=== PATIENT | female | born 1965 | race Caucasian/White ===

== ENCOUNTER 2018-05-01 16:27 | Emergency (ER) | payer OTHER, SELFPAY ==
[2018-05-01 16:39] VITALS: BP 118/72; PULSE 91; RESP 22; TEMP 37.2; O2SAT 96
--- NOTE | 2018-05-01 19:12 | DI.RAD.S_ITS ---
PROCEDURE: XR CHEST 2V INDICATIONS: cough, sob TECHNIQUE: 2 views of the chest were acquired. COMPARISON: [facility], , CHEST 2 VIEW, 01/24/2014, 16:13. FINDINGS: Surgical changes and devices: None. Lungs and pleura: Mild appearance of increased pulmonary vascularity. Streaky retrocardiac opacity is present. Mediastinum: Mediastinal contours are normal. Heart size is normal. Bones and chest wall: No suspicious bony abnormalities. Soft tissues appear unremarkable. IMPRESSION: Streaky retrocardiac opacity which could represent focal edema or developing airspace disease such as pneumonia and/or atelectasis. Dictated by: Leigh Alvarado M.D. on 05/01/2018 at 18:32 Approved by: Leigh Alvarado M.D. on 05/01/2018 at 18:33
[2018-05-01] MEDS: predniSONE 20 MG TABLET 60 MG PO (19:39)
[2018-05-01] MEDS: ALBUTEROL/IPRATROPIUM 3 ML AMPUL INH (19:56)
[2018-05-01 19:57] VITALS: PULSE 75; RESP 20; O2SAT 95
--- NOTE | 2018-05-01 19:59 | ED.URI ---
HPI - URI/Sore Throat <CARLOS Rouse - Last Filed: 05/01/18 22:18> General Chief Complaint: Upper Respiratory Symptoms Stated Complaint: COUGH, FEVER Time Seen by Provider: 05/01/18 19:03 Source: patient and family Mode of arrival: ambulatory Limitations: no limitations History of Present Illness HPI Narrative: Patient is a 52-year-old female with history of asthma current everyday smoker who presents with a chief complaint of cough, fever and shortness of breath. She states symptoms started 2 days ago. She has a history of asthma, but has been on and off for medications sporadically due to insurance reasons. She has been using a nebulizer at home on occasion that belongs to her daughter and using her friend's asthma inhalers. She is not exactly sure what she is taking. She denies any chest pain. She states she has been wheezing. She complains of nausea and vomiting 2 days ago, but no longer. She denies any abdominal pain. She states that her entire family has had the flu recently. Related Data Home Medications Medication Instructions Recorded Confirmed ascorbic acid (vitamin C) #0 05/31/17 fexofenadine #0 05/31/17 Previous Rx's Medication Instructions Recorded albuterol sulfate [Proventil HFA] 1 - 2 puff INH PRN PRN #1 inh 05/31/17 beclomethasone dipropionate [Qvar] 1 puff INH BID #1 inh 05/31/17 albuterol sulfate 1 puff INHALATION Q4-6H PRN #18 05/01/18 gram doxycycline hyclate 100 mg PO BID #20 tab 05/01/18 oseltamivir [Tamiflu] 75 mg PO BID 5 Days #10 cap 05/01/18 prednisone 50 mg PO DAILY #5 tab 05/01/18 Allergies Allergy/AdvReac Type Severity Reaction Status Date / Time No Known Drug Allergies Allergy Verified 05/01/18 16:43 Review of Systems <CARLOS Rouse - Last Filed: 05/01/18 22:18> Review of Systems GENERAL: See HPI HEENT: Denies sinus pain, ear pain, sore throat, difficulty swallowing, dizziness. RESPIRATORY: see HPI CARDIOVASCULAR: Denies chest pain, palpitations, orthopnea, edema, GASTROINTESTINAL: see HPI : Denies dysuria, frequency, incontinence, hematuria, urinary retention. MUSCULOSKELETAL: denies weakness, joint pain, or bony pain SKIN: Denies rash, skin lesions, or other NEUROLOGIC: Denies weakness, headache, numbness, change in speech, confusion, seizures, incoordination. PSYCHIATRIC: No concerning psychosocial issues. 12 point review of systems is negative except for those stated above PFSH <Trini Mcwilliams [employer]- - Last Filed: 05/01/18 22:18> Surgical History History of repair of hiatal hernia Social History Smoking Status: Current every day smoker Social History Smoking Status: Current every day smoker Exam <Trini McwilliamsJENNYFERP- - Last Filed: 05/01/18 22:18> Narrative Exam Narrative: GENERAL: This is a well-nourished, well-developed patient, sitting on stretcher HEAD: Atraumatic. Normocephalic. No temporal or scalp tenderness. EYES: Pupils equal round and reactive. Extraocular motions intact. No scleral icterus. No injection or drainage. ENT: Nose without bleeding, purulent drainage or septal hematoma. Throat without erythema, tonsillar hypertrophy or exudate. Uvula midline. Airway patent. NECK: Trachea midline. No JVD or lymphadenopathy. Supple, nontender, no meningeal signs. CARDIOVASCULAR: Regular rate and rhythm without murmurs, gallops, or rubs. RESPIRATORY: Clear to auscultation. Breath sounds equal bilaterally. No wheezes, rales, or rhonchi. cough during exam. Gross expiratory wheezes all hendrix bilaterally. No stridor. No accessory muscle use. Able to speak full sentences. GASTROINTESTINAL: Abdomen soft, non-tender, nondistended. No hepato-splenomegaly, or palpable masses. No guarding. EXTREMITIES: No clubbing, cyanosis, or edema. No joint tenderness, effusion, or edema noted. BACK: Nontender without deformity or crepitance. No flank tenderness. NEURO: AOx3. SKIN: No rash or erythema. Initial Vital Signs Initial Vital Signs: Vital Signs Temperature 99.0 F 05/01/18 16:39 Pulse Rate 91 H 05/01/18 16:39 Respiratory Rate 22 05/01/18 16:39 Blood Pressure 118/72 05/01/18 16:39 Pulse Oximetry 96 05/01/18 16:39 <Néstor Alvarado DO - Last Filed: 05/01/18 22:28> Initial Vital Signs Initial Vital Signs: Vital Signs Temperature 99.0 F 05/01/18 16:39 Pulse Rate 91 H 05/01/18 16:39 Respiratory Rate 22 05/01/18 16:39 Blood Pressure 118/72 05/01/18 16:39 Pulse Oximetry 96 05/01/18 16:39 Course <CARLOS Rouse - Last Filed: 05/01/18 22:18> Course Narrative: I checked on the patient throughout her stay in the emergency department Orders Ordered: ED Orders 05/01/18 16:52 Influenza A and B by PCR Rapid Stat 05/01/18 19:12 XR chest 2V Stat RT Consult Eval and Treat Now Discontinued Medications Albuterol/Ipratropium (Duoneb) 3 ml INH NOW ONE Stop: 05/01/18 19:56 Last Admin: 05/01/18 19:56 Dose: 3 ml Prednisone (Deltasone) 60 mg PO NOW ONE Stop: 05/01/18 19:33 Last Admin: 05/01/18 19:39 Dose: 60 mg Vital Signs - 8 hr 05/01/18 16:39 05/01/18 19:57 Temperature 99.0 F Pulse Rate 91 H 75 Respiratory Rate 22 20 Blood Pressure 118/72 Pulse Oximetry 96 95 <Néstor Alvarado DO - Last Filed: 05/01/18 22:28> Orders Ordered: ED Orders 05/01/18 16:52 Influenza A and B by PCR Rapid Stat 05/01/18 19:12 XR chest 2V Stat RT Consult Eval and Treat Now Discontinued Medications Albuterol/Ipratropium (Duoneb) 3 ml INH NOW ONE Stop: 05/01/18 19:56 Last Admin: 05/01/18 19:56 Dose: 3 ml Prednisone (Deltasone) 60 mg PO NOW ONE Stop: 05/01/18 19:33 Last Admin: 05/01/18 19:39 Dose: 60 mg Vital Signs - 8 hr 05/01/18 16:39 05/01/18 19:57 Temperature 99.0 F Pulse Rate 91 H 75 Respiratory Rate 22 20 Blood Pressure 118/72 Pulse Oximetry 96 95 MDM - URI/Sore Throat <CARLOS Rouse - Last Filed: 05/01/18 22:18> Lab Data Lab Results 05/01/18 Range/Units 16:52 Influenza A & B (PCR) Positive, type a A (Negative) Imaging Data Chest x-ray: Radiologist's impression: [address] [address] XRay Report Signed Patient: Silva Maier AMR#: [id number] : 1965Acct:[id number] Age/Sex: 52 / FDate of Service: 05/01/18 Loc: ED Accession Number: [id number] Procedure: XR chest 2V Ordering Provider: Trini Mcwilliams PROCEDURE: XR CHEST 2V INDICATIONS: cough, sob TECHNIQUE: 2 views of the chest were acquired. COMPARISON: [facility] , CHEST 2 VIEW, 01/24/2014, 16:13. FINDINGS: Surgical changes and devices: None. Lungs and pleura: Mild appearance of increased pulmonary vascularity. Streaky retrocardiac opacity is present. Mediastinum: Mediastinal contours are normal. Heart size is normal. Bones and chest wall: No suspicious bony abnormalities. Soft tissues appear unremarkable. IMPRESSION: Streaky retrocardiac opacity which could represent focal edema or developing airspace disease such as pneumonia and/or atelectasis. Dictated by: Leigh Alvarado M.D. on 05/01/2018 at 18:32 Approved by: Leigh Alvaardo M.D. on 05/01/2018 at 18:33 MDM Narrative Medical decision making narrative: the patient is a 52-year-old female with history of asthma who presents with shortness of breath and chills. She tested positive for the flu. Her chest x-ray was concerning for pneumonia as well. Given that her symptoms started less than 48 hr ago, I offered her Tamiflu which she accepted. I placed her on doxycycline for her pneumonia. Given the extent of her wheezing, I gave her a burst of prednisone as well as a refill on her albuterol inhaler. I discussed at length return precautions the emergency department including severe shortness of breath or inability keep down fluids. I encouraged [id number] comfort measures as well as rest and pushing fluids. I encouraged her to follow up with primary care provider in the next few days for recheck. Patient was oxygenating well, nontoxic and hemodynamically stable throughout her stay in the emergency department. She had no questions or concerns upon discharge. <Néstor Alvarado, - Last Filed: 05/01/18 22:28> Lab Data Lab Results 05/01/18 Range/Units 16:52 Influenza A & B (PCR) Positive, type a A (Negative) Discharge Plan Departure Patient Disposition: Home Clinical Impression: Influenza Pneumonia Qualifiers: Pneumonia type: due to unspecified organism Laterality: left Lung location: lower lobe of lung Qualified Code(s): J18.1 - Lobar pneumonia, unspecified organism Discharge Date/Time: 05/01/18 20:18 Interventions: ED Discharge Assessment Last Done: 05/01/18 20:16 Instructions: DI for Pneumonia -- Adult, DI for Influenza -- Adult Activity Restrictions/Additional Instructions: your flu test is positive and your x-ray is concerning for pneumonia. I am starting on an antibiotic for the pneumonia and given you a prescription for Tamiflu given that you are in the window and have a history of asthma. I am starting on prednisone for a short course in order to help her wheezing and I have given her prescription of Ventolin. Please call Dr. Sevilla office and please be evaluated for ER follow-up. Please come back to the emergency department for severe shortness of breath, chest pain or acute concerns. I have also given you a work note as you have the flu. Prescriptions: New albuterol sulfate 90 mcg/actuation HFA aerosol inhaler 1 puff INHALATION Q4-6H PRN (Reason: shortness of breath or wheezing) Qty: 18 RF: 0 oseltamivir [Tamiflu] 75 mg capsule 75 mg PO BID 5 Days Qty: 10 RF: 0 prednisone 50 mg tablet 50 mg PO DAILY Qty: 5 RF: 0 doxycycline hyclate 100 mg tablet 100 mg PO BID Qty: 20 RF: 0 No Action ascorbic acid (vitamin C) 500 MG tablet Qty: 0 RF: 0 fexofenadine 180 MG tablet Qty: 0 RF: 0 beclomethasone dipropionate [Qvar] 80 MCG/PUFF aerosol 1 puff INH BID Qty: 1 RF: 1 albuterol sulfate [Proventil HFA] 90 MCG/PUFF HFA aerosol inhaler 1 - 2 puff INH PRN PRNQty: 1 RF: 1 Referrals: Leonard Aguilar MD [Primary Care Provider] - Stand Alone Forms: Work Release Note <Néstor Alvarado DO - Last Filed: 05/01/18 22:28> Cosign ED Attending Boazature Attestation: I was available for consultation during this patient's emergency department encounter
--- NOTE | 2018-05-01 20:06 | ED_ITS ---
HPI - URI/Sore Throat <CARLOS Rouse - Last Filed: 05/01/18 22:18> General Chief Complaint: Upper Respiratory Symptoms Stated Complaint: COUGH, FEVER Time Seen by Provider: 05/01/18 19:03 Source: patient and family Mode of arrival: ambulatory Limitations: no limitations History of Present Illness HPI Narrative: Patient is a 52-year-old female with history of asthma current everyday smoker who presents with a chief complaint of cough, fever and shortness of breath. She states symptoms started 2 days ago. She has a history of asthma, but has been on and off for medications sporadically due to insurance reasons. She has been using a nebulizer at home on occasion that belongs to her daughter and using her friend's asthma inhalers. She is not exactly sure what she is taking. She denies any chest pain. She states she has been wheezing. She complains of nausea and vomiting 2 days ago, but no longer. She denies any abdominal pain. She states that her entire family has had the flu recently. Related Data Home Medications Medication Instructions Recorded Confirmed ascorbic acid (vitamin C) #0 05/31/17 fexofenadine #0 05/31/17 Previous Rx's Medication Instructions Recorded albuterol sulfate [Proventil HFA] 1 - 2 puff INH PRN PRN #1 inh 05/31/17 beclomethasone dipropionate [Qvar] 1 puff INH BID #1 inh 05/31/17 albuterol sulfate 1 puff INHALATION Q4-6H PRN #18 05/01/18 gram doxycycline hyclate 100 mg PO BID #20 tab 05/01/18 oseltamivir [Tamiflu] 75 mg PO BID 5 Days #10 cap 05/01/18 prednisone 50 mg PO DAILY #5 tab 05/01/18 Allergies Allergy/AdvReac Type Severity Reaction Status Date / Time No Known Drug Allergies Allergy Verified 05/01/18 16:43 Review of Systems <CARLOS Rouse - Last Filed: 05/01/18 22:18> Review of Systems GENERAL: See HPI HEENT: Denies sinus pain, ear pain, sore throat, difficulty swallowing, dizziness. RESPIRATORY: see HPI CARDIOVASCULAR: Denies chest pain, palpitations, orthopnea, edema, GASTROINTESTINAL: see HPI : Denies dysuria, frequency, incontinence, hematuria, urinary retention. MUSCULOSKELETAL: denies weakness, joint pain, or bony pain SKIN: Denies rash, skin lesions, or other NEUROLOGIC: Denies weakness, headache, numbness, change in speech, confusion, seizures, incoordination. PSYCHIATRIC: No concerning psychosocial issues. 12 point review of systems is negative except for those stated above PFSH <Trini Mcwilliams [employer]- - Last Filed: 05/01/18 22:18> Surgical History History of repair of hiatal hernia Social History Smoking Status: Current every day smoker Social History Smoking Status: Current every day smoker Exam <Trini McwilliamsJENNYFERP- - Last Filed: 05/01/18 22:18> Narrative Exam Narrative: GENERAL: This is a well-nourished, well-developed patient, sitting on stretcher HEAD: Atraumatic. Normocephalic. No temporal or scalp tenderness. EYES: Pupils equal round and reactive. Extraocular motions intact. No scleral icterus. No injection or drainage. ENT: Nose without bleeding, purulent drainage or septal hematoma. Throat without erythema, tonsillar hypertrophy or exudate. Uvula midline. Airway patent. NECK: Trachea midline. No JVD or lymphadenopathy. Supple, nontender, no meningeal signs. CARDIOVASCULAR: Regular rate and rhythm without murmurs, gallops, or rubs. RESPIRATORY: Clear to auscultation. Breath sounds equal bilaterally. No wheezes, rales, or rhonchi. cough during exam. Gross expiratory wheezes all hendrix bilaterally. No stridor. No accessory muscle use. Able to speak full sentences. GASTROINTESTINAL: Abdomen soft, non-tender, nondistended. No hepato- splenomegaly, or palpable masses. No guarding. EXTREMITIES: No clubbing, cyanosis, or edema. No joint tenderness, effusion, or edema noted. BACK: Nontender without deformity or crepitance. No flank tenderness. NEURO: AOx3. SKIN: No rash or erythema. Initial Vital Signs Initial Vital Signs: Vital Signs Temperature 99.0 F 05/01/18 16:39 Pulse Rate 91 H 05/01/18 16:39 Respiratory Rate 22 05/01/18 16:39 Blood Pressure 118/72 05/01/18 16:39 Pulse Oximetry 96 05/01/18 16:39 <Néstor Alvarado DO - Last Filed: 05/01/18 22:28> Initial Vital Signs Initial Vital Signs: Vital Signs Temperature 99.0 F 05/01/18 16:39 Pulse Rate 91 H 05/01/18 16:39 Respiratory Rate 22 05/01/18 16:39 Blood Pressure 118/72 05/01/18 16:39 Pulse Oximetry 96 05/01/18 16:39 Course <CARLOS Rouse - Last Filed: 05/01/18 22:18> Course Narrative: I checked on the patient throughout her stay in the emergency department Orders Ordered: ED Orders 05/01/18 16:52 Influenza A and B by PCR Rapid Stat 05/01/18 19:12 XR chest 2V Stat RT Consult Eval and Treat Now Discontinued Medications Albuterol/Ipratropium (Duoneb) 3 ml INH NOW ONE Stop: 05/01/18 19:56 Last Admin: 05/01/18 19:56 Dose: 3 ml Prednisone (Deltasone) 60 mg PO NOW ONE Stop: 05/01/18 19:33 Last Admin: 05/01/18 19:39 Dose: 60 mg Vital Signs - 8 hr 05/01/18 16:39 05/01/18 19:57 Temperature 99.0 F Pulse Rate 91 H 75 Respiratory Rate 22 20 Blood Pressure 118/72 Pulse Oximetry 96 95 <Néstor Alvarado DO - Last Filed: 05/01/18 22:28> Orders Ordered: ED Orders 05/01/18 16:52 Influenza A and B by PCR Rapid Stat 05/01/18 19:12 XR chest 2V Stat RT Consult Eval and Treat Now Discontinued Medications Albuterol/Ipratropium (Duoneb) 3 ml INH NOW ONE Stop: 05/01/18 19:56 Last Admin: 05/01/18 19:56 Dose: 3 ml Prednisone (Deltasone) 60 mg PO NOW ONE Stop: 05/01/18 19:33 Last Admin: 05/01/18 19:39 Dose: 60 mg Vital Signs - 8 hr 05/01/18 16:39 05/01/18 19:57 Temperature 99.0 F Pulse Rate 91 H 75 Respiratory Rate 22 20 Blood Pressure 118/72 Pulse Oximetry 96 95 MDM - URI/Sore Throat <CARLOS Rouse - Last Filed: 05/01/18 22:18> Lab Data Lab Results 05/01/18 Range/Units 16:52 Influenza A & B (PCR) Positive, type a A (Negative) Imaging Data Chest x-ray: Radiologist's impression: [address] [address] XRay Report Signed Patient: Silva Maier AMR#: [id number] : 1965Acct:[id number] Age/Sex: 52 / FDate of Service: 05/01/18 Loc: ED Accession Number: [id number] Procedure: XR chest 2V Ordering Provider: Trini Mcwilliams PROCEDURE: XR CHEST 2V INDICATIONS: cough, sob TECHNIQUE: 2 views of the chest were acquired. COMPARISON: [facility] , CHEST 2 VIEW, 01/24/2014, 16:13. FINDINGS: Surgical changes and devices: None. Lungs and pleura: Mild appearance of increased pulmonary vascularity. Streaky retrocardiac opacity is present. Mediastinum: Mediastinal contours are normal. Heart size is normal. Bones and chest wall: No suspicious bony abnormalities. Soft tissues appear unremarkable. IMPRESSION: Streaky retrocardiac opacity which could represent focal edema or developing airspace disease such as pneumonia and/or atelectasis. Dictated by: Leigh Alvarado M.D. on 05/01/2018 at 18:32 Approved by: Leigh Alvarado M.D. on 05/01/2018 at 18:33 MDM Narrative Medical decision making narrative: the patient is a 52-year-old female with history of asthma who presents with shortness of breath and chills. She tested positive for the flu. Her chest x-ray was concerning for pneumonia as well. Given that her symptoms started less than 48 hr ago, I offered her Tamiflu which she accepted. I placed her on doxycycline for her pneumonia. Given the extent of her wheezing, I gave her a burst of prednisone as well as a refill on her albuterol inhaler. I discussed at length return precautions the emergency department including severe shortness of breath or inability keep down fluids. I encouraged [id number] comfort measures as well as rest and pushing fluids. I encouraged her to follow up with primary care provider in the next few days for recheck. Patient was oxygenating well, nontoxic and hemodynamically stable throughout her stay in the emergency department. She had no questions or concerns upon discharge. <Néstor Alvarado, - Last Filed: 05/01/18 22:28> Lab Data Lab Results 05/01/18 Range/Units 16:52 Influenza A & B (PCR) Positive, type a A (Negative) Discharge Plan Departure Patient Disposition: Home Clinical Impression: Influenza Pneumonia Qualifiers: Pneumonia type: due to unspecified organism Laterality: left Lung location: lower lobe of lung Qualified Code(s): J18.1 - Lobar pneumonia, unspecified organism Discharge Date/Time: 05/01/18 20:18 Interventions: ED Discharge Assessment Last Done: 05/01/18 20:16 Instructions: DI for Pneumonia -- Adult, DI for Influenza -- Adult Activity Restrictions/Additional Instructions: your flu test is positive and your x-ray is concerning for pneumonia. I am starting on an antibiotic for the pneumonia and given you a prescription for Tamiflu given that you are in the window and have a history of asthma. I am starting on prednisone for a short course in order to help her wheezing and I have given her prescription of Ventolin. Please call Dr. Sevilla office and please be evaluated for ER follow-up. Please come back to the emergency department for severe shortness of breath, chest pain or acute concerns. I have also given you a work note as you have the flu. Prescriptions: New albuterol sulfate 90 mcg/actuation HFA aerosol inhaler 1 puff INHALATION Q4-6H PRN (Reason: shortness of breath or wheezing) Qty: 18 RF: 0 oseltamivir [Tamiflu] 75 mg capsule 75 mg PO BID 5 Days Qty: 10 RF: 0 prednisone 50 mg tablet 50 mg PO DAILY Qty: 5 RF: 0 doxycycline hyclate 100 mg tablet 100 mg PO BID Qty: 20 RF: 0 No Action ascorbic acid (vitamin C) 500 MG tablet Qty: 0 RF: 0 fexofenadine 180 MG tablet Qty: 0 RF: 0 beclomethasone dipropionate [Qvar] 80 MCG/PUFF aerosol 1 puff INH BID Qty: 1 RF: 1 albuterol sulfate [Proventil HFA] 90 MCG/PUFF HFA aerosol inhaler 1 - 2 puff INH PRN PRNQty: 1 RF: 1 Referrals: Leonard Aguilar MD [Primary Care Provider] - Stand Alone Forms: Work Release Note <Néstor Alvarado DO - Last Filed: 05/01/18 22:28> Cosign ED Attending Boazature Attestation: I was available for consultation during this patient's emergency department encounter
== END 2018-05-01 20:18 | disposition home or self-care (01) ==
PROVIDERS: Emergency Medicine; Emergency Provider Nurse Practitioner Family; Family Provider Family Medicine; PCP Family Medicine
DX: J11.1 Influenza due to unidentified influenza virus with other respiratory manifestations (principal)
CPT/HCPCS: 71046; 87400; 94640; 99282; 99283

== ENCOUNTER → 2018-05-17 16:04 | Outpatient (CLI) | payer OTHER, SELFPAY ==
--- NOTE | 2018-05-17 16:06 | DI.RAD.S_ITS ---
PROCEDURE: XR CHEST 2V INDICATIONS: follow up pneumoia TECHNIQUE: 2 views of the chest were acquired. COMPARISON: [facility], CR, XR CHEST 2V, 05/01/2018, 19:14. FINDINGS: Surgical changes and devices: None. Lungs and pleura: Lungs are clear. No pleural effusions or pneumothorax. Mediastinum: Mediastinal contours are normal. Heart size is normal. Bones and chest wall: No suspicious bony abnormalities. Soft tissues appear unremarkable. IMPRESSION: No acute cardiopulmonary pathology. No focal infiltrate. Dictated by: Wang Dumont M.D. on 05/17/2018 at 16:51 Approved by: Wang Dumont M.D. on 05/17/2018 at 16:54
== END ==
LOC: RAD 16:05
PROVIDERS: Family Provider Family Medicine; PCP Family Medicine; Visit Provider Hospitalist
DX: J18.9 Pneumonia, unspecified organism (principal)
CPT/HCPCS: 71046

== ENCOUNTER → 2018-07-24 08:50 | Outpatient (CLI) | payer OTHER, SELFPAY ==
[2018-07-24 09:44] LABS: Add Manual Diff / Slide Review NO; Basophils Absolute Auto 0 /uL (0-100); Basophils Percent Auto 0.5 % (0-2); Eosinophils Absolute Auto 200 /uL (0-450); Eosinophils Percent Auto 2.6 % (2-4); Hematocrit 41.5 % (36-46); Hemoglobin 13.9 g/dL (12.0-16.0); Lymphocytes Absolute Auto 1500 /uL (1100-4500); Lymphocytes Percent Auto 23.3 % (25-40); Mean Corpuscular HGB Conc 33.5 % (30-36); Mean Corpuscular Hemoglobin 27.6 PG (26-34); Mean Corpuscular Volume 82.5 fL (80-100); Monocytes Absolute Auto 500 /uL (0-900); Monocytes Percent Auto 7.8 % (3-14); Neutrophils Absolute Auto 4200 /uL (1500-7000); Neutrophils Percent Auto 65.8 % (50-75); Platelet Count 299 X10^3/uL (150-400); Red Blood Cell Count 5.04 X10^6/uL (4.0-5.2); Red Cell Distribution Width 14.3 % (11.6-14.8); White Blood Cell Count 6.3 X10^3/uL (4.5-11.0)
[2018-07-24 10:12] LABS: Alanine Aminotransferase 17 IU/L (9-52); Albumin 3.9 g/dL (3.5-5.0); Albumin Globulin Ratio 1.3 (1.0-2.8); Alkaline Phosphatase 73 U/L (38-126); Aspartate Aminotransferase 16 IU/L (14-36); BUN Creatinine Ratio 16.7 (6-22); Bilirubin Total 0.3 mg/dL (0.2-1.3); Blood Urea Nitrogen 10 mg/dL (7-17); Carbon Dioxide 26 mmol/L (22-32); Chloride 105 mmol/L (98-107); Cholesterol 161 mg/dL (140-199); Estimated Glomerular Filt Rate > 60.0 mL/min (>60); Glucose 100 mg/dL (70-100); HDL Cholesterol 38 mg/dL (40-60); HEMOLYSIS < 15 (0-50); LDL Cholesterol Calculated 105 mg/dL (<100); Sodium 138 mmol/L (137-145); Total Protein 6.9 g/dL (6.3-8.2); Triglycerides 89 mg/dL (35-150)
[2018-07-24 10:43] LABS: TSH w/ Reflex to FT4 1.77 uIU/mL (0.47-4.68)
== END ==
PROVIDERS: PCP Family Medicine; Visit Provider Family Medicine
DX: Z00.00 Encounter for general adult medical examination without abnormal findings (principal); Z13.6 Encounter for screening for cardiovascular disorders
CPT/HCPCS: 36415; 80053; 80061; 84443; 85025

== ENCOUNTER → 2018-09-02 14:44 | Outpatient (CLI) | payer OTHER, SELFPAY ==
--- NOTE | 2018-09-02 14:45 | DI.MG.S_ITS ---
BILATERAL DIGITAL SCREENING MAMMOGRAM 3D/2D WITH CAD: 09/02/2018 CLINICAL: Routine screening. Comparison is made to exams dated: 03/17/2016 mammogram, 12/04/2014 mammogram, and 11/26/2013 mammogram - [facility]. There are scattered fibroglandular elements in both breasts. Current study was also evaluated with a Computer Aided Detection (CAD) system. There is a 5 mm round asymmetry with an obscured margin in the left breast anterior depth inferior region seen on the mediolateral oblique view only. No other significant masses, calcifications, or other findings are seen in either breast. IMPRESSION: INCOMPLETE: NEEDS ADDITIONAL IMAGING EVALUATION The 5 mm round asymmetry in the left breast is indeterminate. Additional views with possible ultrasound are recommended. This exam was interpreted at Station ID: [id number]. NOTE: For mammograms, a report in lay terms will be sent to the patient. Approximately 15% of breast malignancies will not be visualized mammographically. In the management of a palpable breast mass, a negative mammogram must not discourage biopsy of a clinically suspicious lesion. Electronically Signed By: Beth kaufman/:09/02/2018 18:07:15 letter sent: Additional Imaging Needed ACR BI-RADS Category 0: Incomplete [id number]
== END ==
PROVIDERS: PCP Family Medicine; Visit Provider Family Medicine
DX: Z12.31 Encounter for screening mammogram for malignant neoplasm of breast (principal); Z12.39 Encounter for other screening for malignant neoplasm of breast; R92.8 Other abnormal and inconclusive findings on diagnostic imaging of breast
CPT/HCPCS: 77063; 77067

== ENCOUNTER → 2018-09-18 08:17 | Outpatient (CLI) | payer OTHER, SELFPAY ==
--- NOTE | 2018-09-18 | DI.MG.S_ITS ---
UNILATERAL LEFT DIGITAL DIAGNOSTIC MAMMOGRAM 3D/2D WITH ADDITIONAL VIEWS: 09/18/2018 CLINICAL: Additional evaluation requested from prior study. Comparison is made to exams dated: 09/02/2018 mammogram, 03/17/2016 mammogram, and 12/04/2014 mammogram - [facility]. There are scattered fibroglandular elements in left breast. There is 0.5 cm round asymmetry in the left breast anterior depth 7-8:00 region seen on the lateral view only. This is less prominent with spot compression, but likely corresponds to the screening finding. There is also a 0.7 cm oval low density asymmetry in the left breast middle depth 9:00 region seen on the lateral view only. No other significant masses or calcifications are seen in the breast. IMPRESSION: INCOMPLETE: NEEDS ADDITIONAL IMAGING EVALUATION The 0.7 cm and 5.0 cm asymmetries persist on additional views and are indeterminate. An ultrasound is recommended. This was performed immediately following this exam. This exam was interpreted at Station ID: [id number]. NOTE: For mammograms, a report in lay terms will be sent to the patient. Approximately 15% of breast malignancies will not be visualized mammographically. In the management of a palpable breast mass, a negative mammogram must not discourage biopsy of a clinically suspicious lesion. Electronically Signed By: Beth kaufman/:09/18/2018 10:23:00 ACR BI-RADS Category 0: Incomplete [id number]
--- NOTE | 2018-09-18 08:19 | DI.US.S_ITS ---
LIMITED ULTRASOUND OF LEFT BREAST: 09/18/2018 CLINICAL: Additional evaluation requested from prior study. Comparison is made to exams dated: 09/18/2018 mammogram, 09/02/2018 mammogram, 03/17/2016 mammogram, 12/04/2014 mammogram, 11/26/2013 mammogram, and 11/24/2013 mammogram - [facility]. Color flow and real-time ultrasound of the left breast 7-9 o'clock region were performed. Garg scale images of the real-time examination were reviewed. There is 0.4 cm x 0.2 cm x 0.3 cm oval cyst in the left breast at 7 o'clock middle depth 5 cm from the nipple. This oval cyst is hypoechoic. This correlates with screening and diagnostic mammography findings. Color flow imaging demonstrates that there is no vascularity present. There also is 0.7 cm x 0.3 cm x 1 cm oval cyst in the left breast at 9 o'clock middle depth 3 cm from the nipple with the long axis parallel to the skin. This correlates with diagnostic mammography findings. Color flow imaging demonstrates that there is no vascularity present. IMPRESSION: PROBABLY BENIGN The 0.4 cm oval cyst in the left breast at 7 o'clock middle depth is probably benign. The 1 cm oval cyst in the left breast at 9 o'clock middle depth is consistent with a complicated cyst and is probably benign. A follow-up left mammogram and an ultrasound in 6 months is recommended to demonstrate stability. Findings and recommendations were conveyed to the patient at time of exam. This exam was interpreted at Station ID: [id number]. Electronically Signed By: Beth kaufman/:09/18/2018 11:50:02 letter sent: Followup Recommended Ultrasound BI-RADS: 3 Probably benign
== END ==
LOC: US 08:17
PROVIDERS: PCP Family Medicine; Visit Provider Family Medicine
DX: R92.8 Other abnormal and inconclusive findings on diagnostic imaging of breast (principal); N60.02 Solitary cyst of left breast
CPT/HCPCS: 76642; 77065; G0279

== ENCOUNTER → 2018-09-26 14:52 | Outpatient (CLI) | payer OTHER, SELFPAY ==
--- NOTE | 2018-09-26 14:53 | DI.RAD.S_ITS ---
PROCEDURE: XR FOOT LT MIN 3V INDICATIONS: heel pain TECHNIQUE: 3 views of the foot were acquired. COMPARISON: None. FINDINGS: Bones: No fractures or dislocations. No suspicious bony lesions. Os peroneum. Plantar and posterior calcaneal spurring. Diffuse midfoot spurring. Possible navicular Soft tissues: No tibiotalar joint effusion. Achilles tendon appears normal. IMPRESSION: Plantar and posterior calcaneal spurring. Dictated by: René Chaudhari M.D. on 09/26/2018 at 17:09 Approved by: René Chaudhari M.D. on 09/26/2018 at 17:13
[2018-09-26 15:47] LABS: B Type Natriuretic Peptide < 100 (<100)
[2018-09-26 17:26] LABS: Blood Urea Nitrogen 9 mg/dL (7-17); Calcium 9.7 mg/dL (8.4-10.2); Carbon Dioxide 29 mmol/L (22-32); Chloride 102 mmol/L (98-107); Estimated Glomerular Filt Rate > 60.0 mL/min (>60); Glucose 94 mg/dL (70-100); HEMOLYSIS < 15 (0-50); Potassium 4.4 mmol/L (3.4-5.1); Sodium 138 mmol/L (137-145)
== END ==
PROVIDERS: PCP Family Medicine; Visit Provider Hospitalist
DX: M79.672 Pain in left foot (principal); M77.32 Calcaneal spur, left foot
CPT/HCPCS: 36415; 73630; 80048; 83880

== ENCOUNTER 2019-01-23 14:30 | Outpatient (RCR) | payer OTHER, SELFPAY ==
--- NOTE | 2018-11-07 08:50 | PT.OIE ---
Current Diagnoses Achilles tendinitis, left leg (11/06/18) Past Surgical History (Last Reviewed 09/26/18 @ 14:58 by Jazzmine Carrion MD) H/O: hysterectomy (Resolved) H/O: hysterectomy (Resolved) History of repair of hiatal hernia Visit Care Team Role Provider Type Leonard Aguilar MD Primary Care Provider Physician Specialty: Family Practice Address: [address] [place] [address], [id number] Email: [email or web address] Nydia Farias DPM Attending Provider Physician Specialty: Podiatry Address: [address] [place] [address], [id number] Email: [email or web address] Physical Therapy Initial Evaluation PT-OP-A Visit Information Start: 11/07/18 08:04 Freq: Status: Active Protocol: Document 11/06/18 16:45 HH (Rec: 11/07/18 08:49 HH [email or web address]) Out-Patient Physical Therapy Visit Information Visit Information Visit Type Initial Evaluation Visit Start Time 16:45 Visit Stop Time 17:30 Total Visit Minutes 45 Visit Number 03/08 Number of DIRECTOR OF BUSINESS OPERATIONS Visits 0 PT-OP-B Current Condition Start: 11/07/18 08:04 Freq: Status: Active Protocol: Document 11/06/18 16:45 HH (Rec: 11/07/18 08:49 [email or web address]) Current Condition History of Current Condition Onset Date 11/07/18 Current Complaints L insertional achilles pain, R heel and foot pain, difficulty in walking History of Current Condition Pt is a 53yo female who presents to clinic with c/o L insertional achilles pain, R heel and foot pain, difficulty in walking since this Mar. Pt stated she started working at the [employer] 6 days a week (9-10 hrs shift) due to short of staff. She had to stay on her feet and constantly walking around at work which increased her stress on both feet. She then started to have L heel pain and R foot pain after a few weeks. Her pain is getting worse and started to have difficulty to take long walks. She went to see Dr. Farias 2 weeks ago and was prescribed with bilateral heel lift wedges. It does help her pain a lot but her pain comes back immediately whenever she walks barefoot at home. SShe is currently unable to sleep in supine due to pressure to her heels. She also has difficulty climbing stairs who has to lead with her R leg and used step to pattern. She stated she does take aleve for pain management. Pt also weighs 316 lbs and hopes to lose weight. Prior Treatments and Tests Pt has heel lift wedges Treatment Goals Patient/Caregiver Goals 1. To be able to amb without heel pain 2. To be able to climb stairs with step over pattern 3. To lose weight Current Functional Impairments (Reported) Functional Limitations- Mobility/Gait unable to amb without heel lifts Functional Limitations- Work/School unable to work for a full8-10 hrs shift due to pain Functional Limitations- Recreation/ unable to go for a long walk Hobbies due to pain ([place]) Personal Factors Other Personal Factors That May Effect SOB Therapy/Recovery Asthma PT-OP-C Subjective Start: 11/07/18 08:04 Freq: Status: Active Protocol: Document 11/06/18 16:45 HH (Rec: 11/07/18 08:49 [email or web address]) OP-PT Subjective Patient Comments Patient Comments I want to be pain free Patient Questionnaires Foot & Ankle Ability Measure- ADL and Sports FAAM-ADL Score 27 FAAM-ADL Impairment 60 to 79% Impaired (Score 16- 32) FAAM-Sport Score 0 FAAM-Sport Impairment 100% Impaired (Score 0) Lower Extremity Functional Scale LEFS Score 40 LEFS Impairment 40 to 59% Impaired (Score 32- 47) OP-PT Pain Assessment Location L heel pain Pain Location Details insertional achilles Intensity 8 Scale Used Numeric (1 - 10) Frequency Constant Pain Aggravating Factors Activity,Exercise,Walking, Stair Climbing Pain Alleviating Factors Inactivity PT-OP-D Balance Start: 11/07/18 08:04 Freq: Status: Active Protocol: Document 11/06/18 16:45 HH (Rec: 11/07/18 08:49 [email or web address]) Balance Tests Single Limb Standing Single Limb- Right 2s Single Limb- Left 7s PT-OP-F Manual Assessment Start: 11/07/18 08:04 Freq: Status: Active Protocol: Document 11/06/18 16:45 HH (Rec: 11/07/18 08:49 [email or web address]) Manual Assessments Soft Tissue Assessment Soft Tissue Mobility Assessment Significant tenderness to touch and pressure at L achilles tendon Tenderness to pressure at R posterior tibialis tendon and proximal plantar fascia PT-OP-G Mobility & Gait Start: 11/07/18 08:04 Freq: Status: Active Protocol: Document 11/06/18 16:45 HH (Rec: 11/07/18 08:49 [email or web address]) OP Gait Assessment Gait Deviations General Gait Pattern Decreased Stride Length, Decreased Feet Clearance Factors Limiting Gait Function Factors Limiting Gait Function Decreased Activity Tolerance, Decreased Strength,Limited Range of Motion,Pain,Poor Balance Comments Gait Comments Knock knee pattern noted with increased R knee valgus. Pt has early bilateral heels off and inadequate WB through lateral heel strike during initial contact and loading response PT-OP-J Posture/Palpation/Skin Start: 11/07/18 08:04 Freq: Status: Active Protocol: Document 11/06/18 16:45 HH (Rec: 11/07/18 08:49 [email or web address]) Posture Evaluation Position Standing Evaluation View Anterior Knee Posture (R) Genu Valgus Ankle/Foot Posture (L) Pronated,(R) Pronated Foot Arch (L) Low Arch,(R) No Arch PT-OP-K Range of Motion Start: 11/07/18 08:04 Freq: Status: Active Protocol: Document 11/06/18 16:45 HH (Rec: 11/07/18 08:49 [email or web address]) Ankle and Foot Goniometric Range of Motion Ankle and Foot Right Active Testing Position Supine Dorsiflexion with Knee Flexed 8 Dorsiflexion with Knee Extended 4 Plantarflexion 48 Left Active Testing Position Supine Dorsiflexion with Knee Flexed 7 Dorsiflexion with Knee Extended 3 Plantarflexion 45 PT-OP-M Strength Start: 11/07/18 08:04 Freq: Status: Active Protocol: Document 11/06/18 16:45 HH (Rec: 11/07/18 08:49 [email or web address]) Hip Strength Hip Manual Muscle Testing Right Flexion (L2) 4+ Good+ Extension (S1) 3+ Fair+ Abduction 3 Fair Adduction 4 Good Left Flexion (L2) 4+ Good+ Extension (S1) 4- Good- Abduction 3+ Fair+ Adduction 4 Good Ankle/Foot Strength Ankle and Foot Manual Muscle Testing Right Dorsiflexion (L4) 4+ Good+ Plantarflexion (S1) 4- Good- Inversion 4- Good- Eversion (S1) 4- Good- Left Dorsiflexion (L4) 4- Good- Plantarflexion (S1) 3+ Fair+ Inversion 4 Good Eversion (S1) 4 Good PT-OP-Q Treatments Start: 11/07/18 08:04 Freq: Status: Active Protocol: Document 11/06/18 16:45 HH (Rec: 11/07/18 08:49 HH [email or web address]) Self-Care/Home Management Treatment Education Other Education Education on postural awareness, gait abnormalities. relationship between body weigth and mechanical loads on B feet. relationship between hip strength/ stability on gait mechanics PT-OP-T Assessment and Plan Start: 11/07/18 08:04 Freq: Status: Active Protocol: Document 11/06/18 16:45 HH (Rec: 11/07/18 08:49 [email or web address]) Physical Therapy Assessment Rehab Potential Rehabilitation Potential Good Evaluation Complexity Number of Personal Factors/Comorbidities 1-2 Number of Body Systems Impaired 3 Clinical Presentation at Evaluation Stable Impairments Impairments Activity Tolerance,Balance, Functional Activities, Functional Mobility,Gait,Pain, Posture,ROM,Soft Tissue Mobility,Strength Other Concerns Barriers to Rehabilitation Pt is moderately obese Goals single leg balance Impairment Pt SLS: L= 7s, R= 2 s Short Term Goal (STG) pt will improve her SLS to 5 more seconds to improve her gait mechanics and stride length STG Duration 4 weeks Retirement Goal (LTG) pt will improve her SLS to 10 more seconds to improve her gait mechanics and stride length LTG Duration 8 weeks activity tolerance Impairment Pt is unable to climb stairs with step over/ prolonged walking Short Term Goal (STG) pt will be able to use step to pattern without UE support/ tolerate 10 mins of walking without heel lift STG Duration 4 weeks Object Oriented Developer Goal (LTG) pt will be able to use step over pattern without UE support/ tolerate 20 mins of walking without heel lift LTG Duration 8 weeks heel pain Impairment Pt has constant L heel pain 8/ 10 Short Term Goal (STG) Pt will have no more than 6/10 L heel pain during amb and at work STG Duration 4 weeks Object Oriented Developer Goal (LTG) Pt will have no more than 4/10 L heel pain during amb and at work LTG Duration 8 weeks Assessment Summary Assessment Pt is a 53yo moderately obeses female presents to clinic with L heel pain and R foot pain. Upon assessment, pt presents insertional achilles tendonopathy possibly due to her increased hours at work which increases mechanical stress on B feet due to her long standing hours with her bodyweight. During gait analysis, pt amb with a knock knee pattern with noticeable knee valgus R>L. She primarily WB through medial border of B feet with inadequate early heel rise. There's noticeable lack of dorsiflexion and inadequate B hip strength/ stability which impedes her gait efficiency. Pt will benefit from skilled therapy to strengthen B hip stabilizers, improve her single leg balance and plantar flexor flexibility and gait efficiency. Physical Therapy Plan Frequency and Duration Frequency of Treatment 2x/Week Duration of Treatment 8 weeks Plan of Care Start Date 11/06/18 Plan of Care End Date 01/06/19 Therapeutic Interventions Therapeutic Interventions Balance Training,Gait Training ,Home Exercise Program,Joint Mobilizations,Manual Therapy, Neuromuscular Re-education, Orthotic/Prosthetic Management ,Patient/Caregiver Education, Self-Care/Home Management,Soft Tissue Mobilization,Taping, Therapeutic Activities, Therapeutic Exercises Modalities Cold Pack/Ice Massage,Electric Stimulation,Hot Packs, Infrared Therapy,Ultrasound Next Visit Focus/Plan Next Note Type Treatment Note Next Visit Plan Provide hep with PF stretch, SLS, hip strengthening ex weight loss program cardio first with bike, stepper manual on L achilles , R plantar fascia B hip strengthening as sam single leg balance as sam
--- NOTE | 2018-11-08 16:43 | PT.OTN ---
Current Diagnoses Achilles tendinitis, left leg (11/08/18) Physical Therapy Treatment Note PT-OP-A Visit Information Start: 11/07/18 08:04 Freq: Status: Active Protocol: Document 11/08/18 15:20 HH (Rec: 11/08/18 16:42 HH [email or web address]) Out-Patient Physical Therapy Visit Information Visit Information Visit Type Treatment Note Visit Start Time 15:20 Visit Stop Time 16:02 Total Visit Minutes 42 Visit Number 04/08 Number of GEOSPATIAL INFORMATION TECHNOLOGIST Visits 0 PT-OP-B Current Condition Start: 11/07/18 08:04 Freq: Status: Active Protocol: Document 11/06/18 16:45 HH (Rec: 11/07/18 08:49 HH [email or web address]) Current Condition History of Current Condition Onset Date 11/07/18 Current Complaints L insertional achilles pain, R heel and foot pain, difficulty in walking History of Current Condition Pt is a 53yo female who presents to clinic with c/o L insertional achilles pain, R heel and foot pain, difficulty in walking since this Mar. Pt stated she started working at the [employer] 6 days a week (9-10 hrs shift) due to short of staff. She had to stay on her feet and constantly walking around at work which increased her stress on both feet. She then started to have L heel pain and R foot pain after a few weeks. Her pain is getting worse and started to have difficulty to take long walks. She went to see Dr. Farias 2 weeks ago and was prescirbed with bilateral heel lift wedges. It does help her pain a lot but her pain comes back immediately whenever she walks barefoot at home. SShe is currently unable to sleep in supine due to pressure to her heels. She also has difficulty climbing stairs who has to lead with her R leg and used step to pattern. She stated she does take aleve for pain management. Pt also weighs 316 lbs and hopes to lose weight. Prior Treatments and Tests Pt has heel lift wedges Treatment Goals Patient/Caregiver Goals 1. To be able to amb without heel pain 2. To be able to climb stairs with step over pattern 3. To lose weight Current Functional Impairments (Reported) Functional Limitations- Mobility/Gait unable to amb without heel lifts Functional Limitations- Work/School unable to work for a full8-10 hrs shift due to pain Functional Limitations- Recreation/ unable to go for a long walk Hobbies due to pain ([place]) Personal Factors Other Personal Factors That May Effect SOB Therapy/Recovery Asthma PT-OP-C Subjective Start: 11/07/18 08:04 Freq: Status: Active Protocol: Document 11/08/18 15:20 HH (Rec: 11/08/18 16:42 HH [email or web address]) OP-PT Subjective Patient Comments Patient Comments I worked 9 hrs today and my feet are very painful today. PT-OP-D Balance Start: 11/07/18 08:04 Freq: Status: Active Protocol: Document 11/06/18 16:45 HH (Rec: 11/07/18 08:49 HH [email or web address]) Balance Tests Single Limb Standing Single Limb- Right 2s Single Limb- Left 7s PT-OP-F Manual Assessment Start: 11/07/18 08:04 Freq: Status: Active Protocol: Document 11/06/18 16:45 HH (Rec: 11/07/18 08:49 HH [email or web address]) Manual Assessments Soft Tissue Assessment Soft Tissue Mobility Assessment Significant tenderness to touch and pressure at L achilles tendon Tenderness to pressure at R posterior tibialis tendon and proximal plantar fascia PT-OP-G Mobility & Gait Start: 11/07/18 08:04 Freq: Status: Active Protocol: Document 11/06/18 16:45 HH (Rec: 11/07/18 08:49 HH [email or web address]) OP Gait Assessment Gait Deviations General Gait Pattern Decreased Stride Length, Decreased Feet Clearance Factors Limiting Gait Function Factors Limiting Gait Function Decreased Activity Tolerance, Decreased Strength,Limited Range of Motion,Pain,Poor Balance Comments Gait Comments Knock knee pattern noted with increased R knee valgus. Pt has early bilateral heels off and inadequate WB through lateral heel strike during initial contact and loading response PT-OP-J Posture/Palpation/Skin Start: 11/07/18 08:04 Freq: Status: Active Protocol: Document 11/06/18 16:45 HH (Rec: 11/07/18 08:49 HH [email or web address]) Posture Evaluation Position Standing Evaluation View Anterior Knee Posture (R) Genu Valgus Ankle/Foot Posture (L) Pronated,(R) Pronated Foot Arch (L) Low Arch,(R) No Arch PT-OP-K Range of Motion Start: 11/07/18 08:04 Freq: Status: Active Protocol: Document 11/06/18 16:45 HH (Rec: 11/07/18 08:49 HH [email or web address]) Ankle and Foot Goniometric Range of Motion Ankle and Foot Right Active Testing Position Supine Dorsiflexion with Knee Flexed 8 Dorsiflexion with Knee Extended 4 Plantarflexion 48 Left Active Testing Position Supine Dorsiflexion with Knee Flexed 7 Dorsiflexion with Knee Extended 3 Plantarflexion 45 PT-OP-M Strength Start: 11/07/18 08:04 Freq: Status: Active Protocol: Document 11/06/18 16:45 HH (Rec: 11/07/18 08:49 HH [email or web address]) Hip Strength Hip Manual Muscle Testing Right Flexion (L2) 4+ Good+ Extension (S1) 3+ Fair+ Abduction 3 Fair Adduction 4 Good Left Flexion (L2) 4+ Good+ Extension (S1) 4- Good- Abduction 3+ Fair+ Adduction 4 Good Ankle/Foot Strength Ankle and Foot Manual Muscle Testing Right Dorsiflexion (L4) 4+ Good+ Plantarflexion (S1) 4- Good- Inversion 4- Good- Eversion (S1) 4- Good- Left Dorsiflexion (L4) 4- Good- Plantarflexion (S1) 3+ Fair+ Inversion 4 Good Eversion (S1) 4 Good PT-OP-Q Treatments Start: 11/07/18 08:04 Freq: Status: Active Protocol: Document 11/08/18 15:20 HH (Rec: 11/08/18 16:42 HH [email or web address]) Therapeutic Exercises Supine Exercises supine hip abduction Resistance level 4 band at hips Reps/Minutes 12 x 3 Comments cues on hip ER and abd Standing Exercises short foot Side bilateral Reps/Minutes 8 x2 Comments cues on creating arch calf raises on step Standing Exercise Name full range of DF and PF Side bilateral Equipment Used stair Reps/Minutes 8 x 3 Manual Therapy Treatment Soft Tissue Mobilization R proximal plantar fascia Mobilization Type Instrument Assisted Intensity/Depth Moderate Body Position Hooklying L achilles Body Location distal achilles Mobilization Type Instrument Assisted Intensity/Depth Deep Body Position Hooklying Taping kt tape Body Location I on L achilles, I on R plantar fascia Type of Tape Kinesio Tape PT-OP-T Assessment and Plan Start: 11/07/18 08:04 Freq: Status: Active Protocol: Document 11/08/18 15:20 HH (Rec: 11/08/18 16:42 [email or web address]) Physical Therapy Assessment Goals single leg balance Impairment Pt SLS: L= 7s, R= 2 s Short Term Goal (STG) pt will improve her SLS to 5 more seconds to improve her gait mechanics and stride length STG Duration 4 weeks Prison Goal (LTG) pt will improve her SLS to 10 more seconds to improve her gait mechanics and stride length LTG Duration 8 weeks activity tolerance Impairment Pt is unable to climb stairs with step over/ prolonged walking Short Term Goal (STG) pt will be able to use step to pattern without UE support/ tolerate 10 mins of walking without heel lift STG Duration 4 weeks Prison Goal (LTG) pt will be able to use step over pattern without UE support/ tolerate 20 mins of walking without heel lift LTG Duration 8 weeks heel pain Impairment Pt has constant L heel pain 8/ 10 Short Term Goal (STG) Pt will have no more than 6/10 L heel pain during amb and at work STG Duration 4 weeks Java Technical Manager Goal (LTG) Pt will have no more than 4/10 L heel pain during amb and at work LTG Duration 8 weeks Assessment Summary Assessment Pt sam tx well and reports reduced pain after manual therapy and KT tape. New HEP include calf raises, supine hip abd and short foot ex. educated to pt to not use heel lift when shes not working. Physical Therapy Plan Next Visit Focus/Plan Next Note Type Treatment Note Next Visit Plan review hep with PF stretch, SLS, hip strengthening ex weight loss program cardio first with bike, stepper manual on L achilles , R plantar fascia B hip strengthening as sam single leg balance as sam
--- NOTE | 2018-11-13 16:43 | PT.OTN ---
Current Diagnoses Achilles tendinitis, left leg (11/13/18) Physical Therapy Treatment Note PT-OP-A Visit Information Start: 11/07/18 08:04 Freq: Status: Active Protocol: Document 11/13/18 15:20 HH (Rec: 11/13/18 16:43 HH [email or web address]) Out-Patient Physical Therapy Visit Information Visit Information Visit Type Treatment Note Visit Start Time 15:20 Visit Stop Time 16:00 Total Visit Minutes 40 Visit Number 05/06 Number of AUTOMATIC CLIPPER Visits 0 PT-OP-B Current Condition Start: 11/07/18 08:04 Freq: Status: Active Protocol: Document 11/06/18 16:45 HH (Rec: 11/07/18 08:49 HH [email or web address]) Current Condition History of Current Condition Onset Date 11/07/18 Current Complaints L insertional achilles pain, R heel and foot pain, difficulty in walking History of Current Condition Pt is a 53yo female who presents to clinic with c/o L insertional achilles pain, R heel and foot pain, difficulty in walking since this Mar. Pt stated she started working at the [employer] 6 days a week (9-10 hrs shift) due to short of staff. She had to stay on her feet and constantly walking around at work which increased her stress on both feet. She then started to have L heel pain and R foot pain after a few weeks. Her pain is getting worse and started to have difficulty to take long walks. She went to see Dr. Farias 2 weeks ago and was prescirbed with bilateral heel lift wedges. It does help her pain a lot but her pain comes back immediately whenever she walks barefoot at home. SShe is currently unable to sleep in supine due to pressure to her heels. She also has difficulty climbing stairs who has to lead with her R leg and used step to pattern. She stated she does take aleve for pain management. Pt also weighs 316 lbs and hopes to lose weight. Prior Treatments and Tests Pt has heel lift wedges Treatment Goals Patient/Caregiver Goals 1. To be able to amb without heel pain 2. To be able to climb stairs with step over pattern 3. To lose weight Current Functional Impairments (Reported) Functional Limitations- Mobility/Gait unable to amb without heel lifts Functional Limitations- Work/School unable to work for a full8-10 hrs shift due to pain Functional Limitations- Recreation/ unable to go for a long walk Hobbies due to pain ([place]) Personal Factors Other Personal Factors That May Effect SOB Therapy/Recovery Asthma PT-OP-C Subjective Start: 11/07/18 08:04 Freq: Status: Active Protocol: Document 11/13/18 15:20 HH (Rec: 11/13/18 16:43 HH [email or web address]) OP-PT Subjective Patient Comments Patient Comments 'I've been doing my exercises and not using my heel lift did increase my heel pain. PT-OP-D Balance Start: 11/07/18 08:04 Freq: Status: Active Protocol: Document 11/06/18 16:45 HH (Rec: 11/07/18 08:49 HH [email or web address]) Balance Tests Single Limb Standing Single Limb- Right 2s Single Limb- Left 7s PT-OP-F Manual Assessment Start: 11/07/18 08:04 Freq: Status: Active Protocol: Document 11/06/18 16:45 HH (Rec: 11/07/18 08:49 HH [email or web address]) Manual Assessments Soft Tissue Assessment Soft Tissue Mobility Assessment Significant tenderness to touch and pressure at L achilles tendon Tenderness to pressure at R posterior tibialis tendon and proximal plantar fascia PT-OP-G Mobility & Gait Start: 11/07/18 08:04 Freq: Status: Active Protocol: Document 11/06/18 16:45 HH (Rec: 11/07/18 08:49 HH [email or web address]) OP Gait Assessment Gait Deviations General Gait Pattern Decreased Stride Length, Decreased Feet Clearance Factors Limiting Gait Function Factors Limiting Gait Function Decreased Activity Tolerance, Decreased Strength,Limited Range of Motion,Pain,Poor Balance Comments Gait Comments Knock knee pattern noted with increased R knee valgus. Pt has early bilateral heels off and inadequate WB through lateral heel strike during initial contact and loading response PT-OP-J Posture/Palpation/Skin Start: 11/07/18 08:04 Freq: Status: Active Protocol: Document 11/06/18 16:45 HH (Rec: 11/07/18 08:49 HH [email or web address]) Posture Evaluation Position Standing Evaluation View Anterior Knee Posture (R) Genu Valgus Ankle/Foot Posture (L) Pronated,(R) Pronated Foot Arch (L) Low Arch,(R) No Arch PT-OP-K Range of Motion Start: 11/07/18 08:04 Freq: Status: Active Protocol: Document 11/06/18 16:45 HH (Rec: 11/07/18 08:49 [email or web address]) Ankle and Foot Goniometric Range of Motion Ankle and Foot Right Active Testing Position Supine Dorsiflexion with Knee Flexed 8 Dorsiflexion with Knee Extended 4 Plantarflexion 48 Left Active Testing Position Supine Dorsiflexion with Knee Flexed 7 Dorsiflexion with Knee Extended 3 Plantarflexion 45 PT-OP-M Strength Start: 11/07/18 08:04 Freq: Status: Active Protocol: Document 11/06/18 16:45 HH (Rec: 11/07/18 08:49 HH [email or web address]) Hip Strength Hip Manual Muscle Testing Right Flexion (L2) 4+ Good+ Extension (S1) 3+ Fair+ Abduction 3 Fair Adduction 4 Good Left Flexion (L2) 4+ Good+ Extension (S1) 4- Good- Abduction 3+ Fair+ Adduction 4 Good Ankle/Foot Strength Ankle and Foot Manual Muscle Testing Right Dorsiflexion (L4) 4+ Good+ Plantarflexion (S1) 4- Good- Inversion 4- Good- Eversion (S1) 4- Good- Left Dorsiflexion (L4) 4- Good- Plantarflexion (S1) 3+ Fair+ Inversion 4 Good Eversion (S1) 4 Good PT-OP-Q Treatments Start: 11/07/18 08:04 Freq: Status: Active Protocol: Document 11/13/18 15:20 HH (Rec: 11/13/18 16:43 HH [email or web address]) Cardio Equipment Recumbent Stepper (Sci-Fit) Duration (Minutes) 5 Resistance 4 Therapeutic Exercises Sitting Exercises seated DF Side bilateral Reps/Minutes 10 secs hold x4 Standing Exercises SLS with support Side bilateral Reps/Minutes 5 secs x 8 Comments cues on weight at lateral boarder of foot. calf stretch Side bilateral Equipment Used grab bar Reps/Minutes 5 secs hold x 8 Comments followed by MTP extension Manual Therapy Treatment Soft Tissue Mobilization R proximal plantar fascia Mobilization Type Instrument Assisted Intensity/Depth Moderate Body Position Hooklying L achilles Body Location distal achilles Mobilization Type Instrument Assisted Intensity/Depth Deep Body Position Hooklying PT-OP-T Assessment and Plan Start: 11/07/18 08:04 Freq: Status: Active Protocol: Document 11/13/18 15:20 HH (Rec: 11/13/18 16:43 [email or web address]) Physical Therapy Assessment Goals single leg balance Impairment Pt SLS: L= 7s, R= 2 s Short Term Goal (STG) pt will improve her SLS to 5 more seconds to improve her gait mechanics and stride length STG Duration 4 weeks [employer] Goal (LTG) pt will improve her SLS to 10 more seconds to improve her gait mechanics and stride length LTG Duration 8 weeks activity tolerance Impairment Pt is unable to climb stairs with step over/ prolonged walking Short Term Goal (STG) pt will be able to use step to pattern without UE support/ tolerate 10 mins of walking without heel lift STG Duration 4 weeks [employer] Goal (LTG) pt will be able to use step over pattern without UE support/ tolerate 20 mins of walking without heel lift LTG Duration 8 weeks heel pain Impairment Pt has constant L heel pain 8/ 10 Short Term Goal (STG) Pt will have no more than 6/10 L heel pain during amb and at work STG Duration 4 weeks [employer] Goal (LTG) Pt will have no more than 4/10 L heel pain during amb and at work LTG Duration 8 weeks Assessment Summary Assessment pt reports her pain is constant especially she has to work for long hours often. Educated pt to do calf stretch at work. Physical Therapy Plan Next Visit Focus/Plan Next Note Type Treatment Note Next Visit Plan review hep with PF stretch, SLS, hip strengthening ex weight loss program cardio first with bike, stepper manual on L achilles , R plantar fascia B hip strengthening as sam single leg balance as sam
--- NOTE | 2018-11-15 16:30 | PT.OTN ---
Current Diagnoses Achilles tendinitis, left leg (11/15/18) Physical Therapy Treatment Note PT-OP-A Visit Information Start: 11/07/18 08:04 Freq: Status: Active Protocol: Document 11/15/18 15:15 HH (Rec: 11/15/18 16:30 HH [email or web address]) Out-Patient Physical Therapy Visit Information Visit Information Visit Type Treatment Note Visit Start Time 15:15 Visit Stop Time 16:01 Total Visit Minutes 46 Visit Number 06/06 Number of FAMILY PRACTICE PHYSICIAN Visits 0 PT-OP-B Current Condition Start: 11/07/18 08:04 Freq: Status: Active Protocol: Document 11/06/18 16:45 HH (Rec: 11/07/18 08:49 HH [email or web address]) Current Condition History of Current Condition Onset Date 11/07/18 Current Complaints L insertional achilles pain, R heel and foot pain, difficulty in walking History of Current Condition Pt is a 53yo female who presents to clinic with c/o L insertional achilles pain, R heel and foot pain, difficulty in walking since this Mar. Pt stated she started working at the [employer] 6 days a week (9-10 hrs shift) due to short of staff. She had to stay on her feet and constantly walking around at work which increased her stress on both feet. She then started to have L heel pain and R foot pain after a few weeks. Her pain is getting worse and started to have difficulty to take long walks. She went to see Dr. Farias 2 weeks ago and was prescirbed with bilateral heel lift wedges. It does help her pain a lot but her pain comes back immediately whenever she walks barefoot at home. SShe is currently unable to sleep in supine due to pressure to her heels. She also has difficulty climbing stairs who has to lead with her R leg and used step to pattern. She stated she does take aleve for pain management. Pt also weighs 316 lbs and hopes to lose weight. Prior Treatments and Tests Pt has heel lift wedges Treatment Goals Patient/Caregiver Goals 1. To be able to amb without heel pain 2. To be able to climb stairs with step over pattern 3. To lose weight Current Functional Impairments (Reported) Functional Limitations- Mobility/Gait unable to amb without heel lifts Functional Limitations- Work/School unable to work for a full8-10 hrs shift due to pain Functional Limitations- Recreation/ unable to go for a long walk Hobbies due to pain ([place]) Personal Factors Other Personal Factors That May Effect SOB Therapy/Recovery Asthma PT-OP-C Subjective Start: 11/07/18 08:04 Freq: Status: Active Protocol: Document 11/15/18 15:15 HH (Rec: 11/15/18 16:30 HH [email or web address]) OP-PT Subjective Patient Comments Patient Comments 'Working long hours did increase my feet pain. I've been doing my exercises at home and work. PT-OP-D Balance Start: 11/07/18 08:04 Freq: Status: Active Protocol: Document 11/06/18 16:45 HH (Rec: 11/07/18 08:49 HH [email or web address]) Balance Tests Single Limb Standing Single Limb- Right 2s Single Limb- Left 7s PT-OP-F Manual Assessment Start: 11/07/18 08:04 Freq: Status: Active Protocol: Document 11/06/18 16:45 HH (Rec: 11/07/18 08:49 HH [email or web address]) Manual Assessments Soft Tissue Assessment Soft Tissue Mobility Assessment Significant tenderness to touch and pressure at L achilles tendon Tenderness to pressure at R posterior tibialis tendon and proximal plantar fascia PT-OP-G Mobility & Gait Start: 11/07/18 08:04 Freq: Status: Active Protocol: Document 11/06/18 16:45 HH (Rec: 11/07/18 08:49 HH [email or web address]) OP Gait Assessment Gait Deviations General Gait Pattern Decreased Stride Length, Decreased Feet Clearance Factors Limiting Gait Function Factors Limiting Gait Function Decreased Activity Tolerance, Decreased Strength,Limited Range of Motion,Pain,Poor Balance Comments Gait Comments Knock knee pattern noted with increased R knee valgus. Pt has early bilateral heels off and inadequate WB through lateral heel strike during initial contact and loading response PT-OP-J Posture/Palpation/Skin Start: 11/07/18 08:04 Freq: Status: Active Protocol: Document 11/06/18 16:45 HH (Rec: 11/07/18 08:49 HH [email or web address]) Posture Evaluation Position Standing Evaluation View Anterior Knee Posture (R) Genu Valgus Ankle/Foot Posture (L) Pronated,(R) Pronated Foot Arch (L) Low Arch,(R) No Arch PT-OP-K Range of Motion Start: 11/07/18 08:04 Freq: Status: Active Protocol: Document 11/06/18 16:45 HH (Rec: 11/07/18 08:49 HH [email or web address]) Ankle and Foot Goniometric Range of Motion Ankle and Foot Right Active Testing Position Supine Dorsiflexion with Knee Flexed 8 Dorsiflexion with Knee Extended 4 Plantarflexion 48 Left Active Testing Position Supine Dorsiflexion with Knee Flexed 7 Dorsiflexion with Knee Extended 3 Plantarflexion 45 PT-OP-M Strength Start: 11/07/18 08:04 Freq: Status: Active Protocol: Document 11/06/18 16:45 HH (Rec: 11/07/18 08:49 HH [email or web address]) Hip Strength Hip Manual Muscle Testing Right Flexion (L2) 4+ Good+ Extension (S1) 3+ Fair+ Abduction 3 Fair Adduction 4 Good Left Flexion (L2) 4+ Good+ Extension (S1) 4- Good- Abduction 3+ Fair+ Adduction 4 Good Ankle/Foot Strength Ankle and Foot Manual Muscle Testing Right Dorsiflexion (L4) 4+ Good+ Plantarflexion (S1) 4- Good- Inversion 4- Good- Eversion (S1) 4- Good- Left Dorsiflexion (L4) 4- Good- Plantarflexion (S1) 3+ Fair+ Inversion 4 Good Eversion (S1) 4 Good PT-OP-Q Treatments Start: 11/07/18 08:04 Freq: Status: Active Protocol: Document 11/15/18 15:15 HH (Rec: 11/15/18 16:30 HH [email or web address]) Cardio Equipment Recumbent Stepper (Sci-Fit) Duration (Minutes) 7 Resistance 4 Therapeutic Exercises Sitting Exercises seated DF Side bilateral Reps/Minutes 10 secs hold x4 Standing Exercises calf raises on step Standing Exercise Name full range of DF and PF Side bilateral Equipment Used stair Reps/Minutes 8 x 3 Manual Therapy Treatment Soft Tissue Mobilization B calves Mobilization Type Sustained Pressure,Trigger Point Release Intensity/Depth Moderate Body Position Prone R proximal plantar fascia Mobilization Type Instrument Assisted Intensity/Depth Moderate Body Position Hooklying L achilles Body Location distal achilles Mobilization Type Instrument Assisted Intensity/Depth Deep Body Position Hooklying PT-OP-T Assessment and Plan Start: 11/07/18 08:04 Freq: Status: Active Protocol: Document 11/15/18 15:15 HH (Rec: 11/15/18 16:30 [email or web address]) Physical Therapy Assessment Goals single leg balance Impairment Pt SLS: L= 7s, R= 2 s Short Term Goal (STG) pt will improve her SLS to 5 more seconds to improve her gait mechanics and stride length STG Duration 4 weeks [facility] Goal (LTG) pt will improve her SLS to 10 more seconds to improve her gait mechanics and stride length LTG Duration 8 weeks activity tolerance Impairment Pt is unable to climb stairs with step over/ prolonged walking Short Term Goal (STG) pt will be able to use step to pattern without UE support/ tolerate 10 mins of walking without heel lift STG Duration 4 weeks [facility] Goal (LTG) pt will be able to use step over pattern without UE support/ tolerate 20 mins of walking without heel lift LTG Duration 8 weeks heel pain Impairment Pt has constant L heel pain 8/ 10 Short Term Goal (STG) Pt will have no more than 6/10 L heel pain during amb and at work STG Duration 4 weeks [facility] Goal (LTG) Pt will have no more than 4/10 L heel pain during amb and at work LTG Duration 8 weeks Assessment Summary Assessment Pt cont to work long hours which is very likely to impede her recovery process. Pt has been complied to her HEP. Educated pt on footwear to have better medial and heel support to improve her ankle stability, especially for long work hours. Pt sam tx very well with decreased pain after manual therapy. Physical Therapy Plan Next Visit Focus/Plan Next Note Type Treatment Note Next Visit Plan review hep with PF stretch, SLS, hip strengthening ex weight loss program cardio first with bike, stepper manual on L achilles , R plantar fascia B hip strengthening as sam single leg balance as sam
--- NOTE | 2018-12-04 18:02 | PT.OTN ---
Current Diagnoses Achilles tendinitis, left leg (12/04/18) Physical Therapy Treatment Note PT-OP-A Visit Information Start: 11/07/18 08:04 Freq: Status: Active Protocol: Document 12/04/18 14:33 HH (Rec: 12/04/18 15:17 HH [id number]) Out-Patient Physical Therapy Visit Information Visit Information Visit Type Treatment Note Visit Start Time 14:33 Visit Stop Time 15:17 Total Visit Minutes 44 Visit Number 07/06 Number of BUSINESS MANAGEMENT ANALYST Visits 0 PT-OP-B Current Condition Start: 11/07/18 08:04 Freq: Status: Active Protocol: Document 11/06/18 16:45 HH (Rec: 11/07/18 08:49 HH [email or web address]) Current Condition History of Current Condition Onset Date 11/07/18 Current Complaints L insertional achilles pain, R heel and foot pain, difficulty in walking History of Current Condition Pt is a 53yo female who presents to clinic with c/o L insertional achilles pain, R heel and foot pain, difficulty in walking since this Mar. Pt stated she started working at the [employer] 6 days a week (9-10 hrs shift) due to short of staff. She had to stay on her feet and constantly walking around at work which increased her stress on both feet. She then started to have L heel pain and R foot pain after a few weeks. Her pain is getting worse and started to have difficulty to take long walks. She went to see Dr. Farias 2 weeks ago and was prescirbed with bilateral heel lift wedges. It does help her pain a lot but her pain comes back immediately whenever she walks barefoot at home. SShe is currently unable to sleep in supine due to pressure to her heels. She also has difficulty climbing stairs who has to lead with her R leg and used step to pattern. She stated she does take aleve for pain management. Pt also weighs 316 lbs and hopes to lose weight. Prior Treatments and Tests Pt has heel lift wedges Treatment Goals Patient/Caregiver Goals 1. To be able to amb without heel pain 2. To be able to climb stairs with step over pattern 3. To lose weight Current Functional Impairments (Reported) Functional Limitations- Mobility/Gait unable to amb without heel lifts Functional Limitations- Work/School unable to work for a full8-10 hrs shift due to pain Functional Limitations- Recreation/ unable to go for a long walk Hobbies due to pain ([place]) Personal Factors Other Personal Factors That May Effect SOB Therapy/Recovery Asthma PT-OP-C Subjective Start: 11/07/18 08:04 Freq: Status: Active Protocol: Document 12/04/18 14:33 HH (Rec: 12/04/18 15:17 HH [id number]) OP-PT Subjective Patient Comments Patient Comments I feel ok as long as I only work half days, but the full days make my feet and knees hurt. I can't figure out how to stand at work to make things better. I am planning to get a gym membership but not sure what I can use there. I still haven't gotten new shoes. PT-OP-D Balance Start: 11/07/18 08:04 Freq: Status: Active Protocol: Document 11/06/18 16:45 HH (Rec: 11/07/18 08:49 HH [email or web address]) Balance Tests Single Limb Standing Single Limb- Right 2s Single Limb- Left 7s PT-OP-F Manual Assessment Start: 11/07/18 08:04 Freq: Status: Active Protocol: Document 11/06/18 16:45 HH (Rec: 11/07/18 08:49 HH [email or web address]) Manual Assessments Soft Tissue Assessment Soft Tissue Mobility Assessment Significant tenderness to touch and pressure at L achilles tendon Tenderness to pressure at R posterior tibialis tendon and proximal plantar fascia PT-OP-G Mobility & Gait Start: 11/07/18 08:04 Freq: Status: Active Protocol: Document 11/06/18 16:45 HH (Rec: 11/07/18 08:49 HH [email or web address]) OP Gait Assessment Gait Deviations General Gait Pattern Decreased Stride Length, Decreased Feet Clearance Factors Limiting Gait Function Factors Limiting Gait Function Decreased Activity Tolerance, Decreased Strength,Limited Range of Motion,Pain,Poor Balance Comments Gait Comments Knock knee pattern noted with increased R knee valgus. Pt has early bilateral heels off and inadequate WB through lateral heel strike during initial contact and loading response PT-OP-J Posture/Palpation/Skin Start: 11/07/18 08:04 Freq: Status: Active Protocol: Document 11/06/18 16:45 HH (Rec: 11/07/18 08:49 HH [email or web address]) Posture Evaluation Position Standing Evaluation View Anterior Knee Posture (R) Genu Valgus Ankle/Foot Posture (L) Pronated,(R) Pronated Foot Arch (L) Low Arch,(R) No Arch PT-OP-K Range of Motion Start: 11/07/18 08:04 Freq: Status: Active Protocol: Document 11/06/18 16:45 HH (Rec: 11/07/18 08:49 HH [email or web address]) Ankle and Foot Goniometric Range of Motion Ankle and Foot Right Active Testing Position Supine Dorsiflexion with Knee Flexed 8 Dorsiflexion with Knee Extended 4 Plantarflexion 48 Left Active Testing Position Supine Dorsiflexion with Knee Flexed 7 Dorsiflexion with Knee Extended 3 Plantarflexion 45 PT-OP-M Strength Start: 11/07/18 08:04 Freq: Status: Active Protocol: Document 11/06/18 16:45 HH (Rec: 11/07/18 08:49 [email or web address]) Hip Strength Hip Manual Muscle Testing Right Flexion (L2) 4+ Good+ Extension (S1) 3+ Fair+ Abduction 3 Fair Adduction 4 Good Left Flexion (L2) 4+ Good+ Extension (S1) 4- Good- Abduction 3+ Fair+ Adduction 4 Good Ankle/Foot Strength Ankle and Foot Manual Muscle Testing Right Dorsiflexion (L4) 4+ Good+ Plantarflexion (S1) 4- Good- Inversion 4- Good- Eversion (S1) 4- Good- Left Dorsiflexion (L4) 4- Good- Plantarflexion (S1) 3+ Fair+ Inversion 4 Good Eversion (S1) 4 Good PT-OP-Q Treatments Start: 11/07/18 08:04 Freq: Status: Active Protocol: Document 12/04/18 14:33 HH (Rec: 12/04/18 15:17 HH [id number]) Cardio Equipment Recumbent Stepper (Sci-Fit) Duration (Minutes) 7 Resistance 4 Gym Equipment Shuttle Recovery squats Details double leg with short foot Resistance 75 lbs Shuttle Recovery Platform Stable Reps/Time 1x30 Therapeutic Exercises Standing Exercises Small ball release Side bilateral Equipment Used golf ball Reps/Minutes 2 min Comments Release to plantar fascia Manual Therapy Treatment Soft Tissue Mobilization B calves Mobilization Type Instrument Assisted Intensity/Depth Moderate Body Position Prone Comments Using roller R proximal plantar fascia Mobilization Type Instrument Assisted,Strain/ Counterstrain,Strumming, Sustained Pressure Intensity/Depth Moderate Body Position Prone Self-Care/Home Management Treatment Education Patient Education Body Mechanics,Home Exercise Program,Pain Management, Posture Other Education education on acquiring footwear with wider toe box with heel support weight loss program with focus on seated exercises gym equipment usage (cycling, leg press) PT-OP-T Assessment and Plan Start: 11/07/18 08:04 Freq: Status: Active Protocol: Document 12/04/18 14:33 HH (Rec: 12/04/18 15:17 HH [id number]) Physical Therapy Assessment Goals single leg balance Impairment Pt SLS: L= 7s, R= 2 s Short Term Goal (STG) pt will improve her SLS to 5 more seconds to improve her gait mechanics and stride length STG Duration 4 weeks Long-Term Goal (LTG) pt will improve her SLS to 10 more seconds to improve her gait mechanics and stride length LTG Duration 8 weeks activity tolerance Impairment Pt is unable to climb stairs with step over/ prolonged walking Short Term Goal (STG) pt will be able to use step to pattern without UE support/ tolerate 10 mins of walking without heel lift STG Duration 4 weeks Cat Sitter Goal (LTG) pt will be able to use step over pattern without UE support/ tolerate 20 mins of walking without heel lift LTG Duration 8 weeks heel pain Impairment Pt has constant L heel pain 8/ 10 Short Term Goal (STG) Pt will have no more than 6/10 L heel pain during amb and at work STG Duration 4 weeks Long-Term Goal (LTG) Pt will have no more than 4/10 L heel pain during amb and at work LTG Duration 8 weeks Assessment Summary Assessment Improved gait and sx report today likely d/t shorter work shift and modification to sit more at work. Pt cont to have 3days x 10 hours + 2x 5hours work shift which significant impedes rehab progress. Discussed benefits of increasing activity level for weight loss and biking regularly at gym. Pt sam ex in seated position without increase in symptoms. Physical Therapy Plan Next Visit Focus/Plan Next Note Type Treatment Note Next Visit Plan review hep with PF stretch, SLS, hip strengthening ex weight loss program leg press cardio first with bike, stepper manual on L achilles , R plantar fascia B hip strengthening as sam single leg balance as sam
--- NOTE | 2018-12-11 16:30 | PT.OTN ---
Current Diagnoses Achilles tendinitis, left leg (12/11/18) Physical Therapy Treatment Note PT-OP-A Visit Information Start: 11/07/18 08:04 Freq: Status: Active Protocol: Document 12/11/18 14:35 HH (Rec: 12/11/18 16:29 HH [email or web address]) Out-Patient Physical Therapy Visit Information Visit Information Visit Type Treatment Note Visit Start Time 14:35 Visit Stop Time 15:20 Total Visit Minutes 45 Visit Number 08/06 Number of MATERIAL REQUIREMENTS PLANNING MANAGER Visits 0 PT-OP-B Current Condition Start: 11/07/18 08:04 Freq: Status: Active Protocol: Document 11/06/18 16:45 HH (Rec: 11/07/18 08:49 HH [email or web address]) Current Condition History of Current Condition Onset Date 11/07/18 Current Complaints L insertional achilles pain, R heel and foot pain, difficulty in walking History of Current Condition Pt is a 53yo female who presents to clinic with c/o L insertional achilles pain, R heel and foot pain, difficulty in walking since this Mar. Pt stated she started working at the [employer] 6 days a week (9-10 hrs shift) due to short of staff. She had to stay on her feet and constantly walking around at work which increased her stress on both feet. She then started to have L heel pain and R foot pain after a few weeks. Her pain is getting worse and started to have difficulty to take long walks. She went to see Dr. Farias 2 weeks ago and was prescirbed with bilateral heel lift wedges. It does help her pain a lot but her pain comes back immediately whenever she walks barefoot at home. SShe is currently unable to sleep in supine due to pressure to her heels. She also has difficulty climbing stairs who has to lead with her R leg and used step to pattern. She stated she does take aleve for pain management. Pt also weighs 316 lbs and hopes to lose weight. Prior Treatments and Tests Pt has heel lift wedges Treatment Goals Patient/Caregiver Goals 1. To be able to amb without heel pain 2. To be able to climb stairs with step over pattern 3. To lose weight Current Functional Impairments (Reported) Functional Limitations- Mobility/Gait unable to amb without heel lifts Functional Limitations- Work/School unable to work for a full8-10 hrs shift due to pain Functional Limitations- Recreation/ unable to go for a long walk Hobbies due to pain ([place]) Personal Factors Other Personal Factors That May Effect SOB Therapy/Recovery Asthma PT-OP-C Subjective Start: 11/07/18 08:04 Freq: Status: Active Protocol: Document 12/11/18 14:35 HH (Rec: 12/11/18 16:29 HH [email or web address]) OP-PT Subjective Patient Comments Patient Comments Im good today since it's short work day. But my feet pain still bother me once I stand and sit for a long time. I just signed up for gym membership. I also couldnt get new shoes yet since my pay day is next week. Patient Reported Progress Same PT-OP-D Balance Start: 11/07/18 08:04 Freq: Status: Active Protocol: Document 11/06/18 16:45 HH (Rec: 11/07/18 08:49 HH [email or web address]) Balance Tests Single Limb Standing Single Limb- Right 2s Single Limb- Left 7s PT-OP-F Manual Assessment Start: 11/07/18 08:04 Freq: Status: Active Protocol: Document 11/06/18 16:45 HH (Rec: 11/07/18 08:49 HH [email or web address]) Manual Assessments Soft Tissue Assessment Soft Tissue Mobility Assessment Significant tenderness to touch and pressure at L achilles tendon Tenderness to pressure at R posterior tibialis tendon and proximal plantar fascia PT-OP-G Mobility & Gait Start: 11/07/18 08:04 Freq: Status: Active Protocol: Document 11/06/18 16:45 HH (Rec: 11/07/18 08:49 HH [email or web address]) OP Gait Assessment Gait Deviations General Gait Pattern Decreased Stride Length, Decreased Feet Clearance Factors Limiting Gait Function Factors Limiting Gait Function Decreased Activity Tolerance, Decreased Strength,Limited Range of Motion,Pain,Poor Balance Comments Gait Comments Knock knee pattern noted with increased R knee valgus. Pt has early bilateral heels off and inadequate WB through lateral heel strike during initial contact and loading response PT-OP-J Posture/Palpation/Skin Start: 11/07/18 08:04 Freq: Status: Active Protocol: Document 11/06/18 16:45 HH (Rec: 11/07/18 08:49 HH [email or web address]) Posture Evaluation Position Standing Evaluation View Anterior Knee Posture (R) Genu Valgus Ankle/Foot Posture (L) Pronated,(R) Pronated Foot Arch (L) Low Arch,(R) No Arch PT-OP-K Range of Motion Start: 11/07/18 08:04 Freq: Status: Active Protocol: Document 11/06/18 16:45 HH (Rec: 11/07/18 08:49 HH [email or web address]) Ankle and Foot Goniometric Range of Motion Ankle and Foot Right Active Testing Position Supine Dorsiflexion with Knee Flexed 8 Dorsiflexion with Knee Extended 4 Plantarflexion 48 Left Active Testing Position Supine Dorsiflexion with Knee Flexed 7 Dorsiflexion with Knee Extended 3 Plantarflexion 45 PT-OP-M Strength Start: 11/07/18 08:04 Freq: Status: Active Protocol: Document 11/06/18 16:45 HH (Rec: 11/07/18 08:49 HH [email or web address]) Hip Strength Hip Manual Muscle Testing Right Flexion (L2) 4+ Good+ Extension (S1) 3+ Fair+ Abduction 3 Fair Adduction 4 Good Left Flexion (L2) 4+ Good+ Extension (S1) 4- Good- Abduction 3+ Fair+ Adduction 4 Good Ankle/Foot Strength Ankle and Foot Manual Muscle Testing Right Dorsiflexion (L4) 4+ Good+ Plantarflexion (S1) 4- Good- Inversion 4- Good- Eversion (S1) 4- Good- Left Dorsiflexion (L4) 4- Good- Plantarflexion (S1) 3+ Fair+ Inversion 4 Good Eversion (S1) 4 Good PT-OP-Q Treatments Start: 11/07/18 08:04 Freq: Status: Active Protocol: Document 12/11/18 14:35 HH (Rec: 12/11/18 16:29 HH [email or web address]) Cardio Equipment Recumbent Stepper (Sci-Fit) Duration (Minutes) 10 Resistance 2.0 Other Pt reports starting to sweat. Gym Equipment Shuttle Recovery heel raise Details double leg with short foot Resistance 75lbs Shuttle Recovery Platform Stable Reps/Time 20 x3 squats Details double leg with short foot Resistance 75 lbs Shuttle Recovery Platform Stable Reps/Time 20 x 3 Therapeutic Exercises Standing Exercises calf raises on step Standing Exercise Name full range of DF and PF Side bilateral Equipment Used stair Reps/Minutes 8 x 3 Manual Therapy Treatment Soft Tissue Mobilization B calves Mobilization Type Instrument Assisted Intensity/Depth Moderate Body Position Prone Comments Using roller L achilles Body Location distal achilles Mobilization Type Instrument Assisted Intensity/Depth Deep Body Position Hooklying Self-Care/Home Management Treatment Education Patient Education Body Mechanics,Home Exercise Program,Pain Management, Posture Other Education Education on biking/ stepper at gym 30mins /day, plus leg press and heel raise. Participate weight loss clinic . Weight loss tracking every week. PT-OP-T Assessment and Plan Start: 11/07/18 08:04 Freq: Status: Active Protocol: Document 12/11/18 14:35 HH (Rec: 12/11/18 16:29 HH [email or web address]) Physical Therapy Assessment Goals single leg balance Impairment Pt SLS: L= 7s, R= 2 s Short Term Goal (STG) pt will improve her SLS to 5 more seconds to improve her gait mechanics and stride length STG Duration 4 weeks Retirement Goal (LTG) pt will improve her SLS to 10 more seconds to improve her gait mechanics and stride length LTG Duration 8 weeks activity tolerance Impairment Pt is unable to climb stairs with step over/ prolonged walking Short Term Goal (STG) pt will be able to use step to pattern without UE support/ tolerate 10 mins of walking without heel lift STG Duration 4 weeks Retirement Goal (LTG) pt will be able to use step over pattern without UE support/ tolerate 20 mins of walking without heel lift LTG Duration 8 weeks heel pain Impairment Pt has constant L heel pain 8/ 10 Short Term Goal (STG) Pt will have no more than 6/10 L heel pain during amb and at work STG Duration 4 weeks Retirement Goal (LTG) Pt will have no more than 4/10 L heel pain during amb and at work LTG Duration 8 weeks Assessment Summary Assessment Pt's long standing work shifts , financial ability, poor footwear cont to impede rehab progress. Educated pt to reduce rehab visit to invest on footwear with better heel support and gym membership to promote weight loss. Pt's today weight is 316.5 lbs. Educated her to participate 30mins biking/stepper + leg press and heel raise at the gym everyday. Given monthly calendar to track her weight loss progress. Also given weight loss program at [facility] in [place]. Physical Therapy Plan Next Visit Focus/Plan Next Note Type Treatment Note Next Visit Plan weight loss program review hep with PF stretch, SLS, hip strengthening ex weight loss program leg press cardio first with bike, stepper manual on L achilles , R plantar fascia B hip strengthening as sam single leg balance as sam
--- NOTE | 2018-12-17 18:32 | PT.OTN ---
Current Diagnoses Achilles tendinitis, left leg (12/17/18) Physical Therapy Treatment Note PT-OP-A Visit Information Start: 11/07/18 08:04 Freq: Status: Active Protocol: Document 12/17/18 17:29 HH (Rec: 12/17/18 18:32 HH [email or web address]) Out-Patient Physical Therapy Visit Information Visit Information Visit Type Treatment Note Visit Start Time 17:29 Visit Stop Time 18:15 Total Visit Minutes 46 Visit Number 09/05 Number of BLUE PRINT CONTROL CLERK Visits 0 PT-OP-B Current Condition Start: 11/07/18 08:04 Freq: Status: Active Protocol: Document 11/06/18 16:45 HH (Rec: 11/07/18 08:49 HH [email or web address]) Current Condition History of Current Condition Onset Date 11/07/18 Current Complaints L insertional achilles pain, R heel and foot pain, difficulty in walking History of Current Condition Pt is a 53yo female who presents to clinic with c/o L insertional achilles pain, R heel and foot pain, difficulty in walking since this Mar. Pt stated she started working at the [employer] 6 days a week (9-10 hrs shift) due to short of staff. She had to stay on her feet and constantly walking around at work which increased her stress on both feet. She then started to have L heel pain and R foot pain after a few weeks. Her pain is getting worse and started to have difficulty to take long walks. She went to see Dr. Farias 2 weeks ago and was prescirbed with bilateral heel lift wedges. It does help her pain a lot but her pain comes back immediately whenever she walks barefoot at home. SShe is currently unable to sleep in supine due to pressure to her heels. She also has difficulty climbing stairs who has to lead with her R leg and used step to pattern. She stated she does take aleve for pain management. Pt also weighs 316 lbs and hopes to lose weight. Prior Treatments and Tests Pt has heel lift wedges Treatment Goals Patient/Caregiver Goals 1. To be able to amb without heel pain 2. To be able to climb stairs with step over pattern 3. To lose weight Current Functional Impairments (Reported) Functional Limitations- Mobility/Gait unable to amb without heel lifts Functional Limitations- Work/School unable to work for a full8-10 hrs shift due to pain Functional Limitations- Recreation/ unable to go for a long walk Hobbies due to pain ([place]) Personal Factors Other Personal Factors That May Effect SOB Therapy/Recovery Asthma PT-OP-C Subjective Start: 11/07/18 08:04 Freq: Status: Active Protocol: Document 12/17/18 17:29 HH (Rec: 12/17/18 18:32 HH [email or web address]) OP-PT Subjective Patient Comments Patient Comments I got a new pair of shoes with wide toe box and heel support. And i stopped using heel wedge and i didnt have too much ankle and heel pain. I went to the gym too but using recumbent bike hurts my L knee. Patient Reported Progress Improving PT-OP-D Balance Start: 11/07/18 08:04 Freq: Status: Active Protocol: Document 11/06/18 16:45 HH (Rec: 11/07/18 08:49 HH [email or web address]) Balance Tests Single Limb Standing Single Limb- Right 2s Single Limb- Left 7s PT-OP-F Manual Assessment Start: 11/07/18 08:04 Freq: Status: Active Protocol: Document 11/06/18 16:45 HH (Rec: 11/07/18 08:49 HH [email or web address]) Manual Assessments Soft Tissue Assessment Soft Tissue Mobility Assessment Significant tenderness to touch and pressure at L achilles tendon Tenderness to pressure at R posterior tibialis tendon and proximal plantar fascia PT-OP-G Mobility & Gait Start: 11/07/18 08:04 Freq: Status: Active Protocol: Document 11/06/18 16:45 HH (Rec: 11/07/18 08:49 HH [email or web address]) OP Gait Assessment Gait Deviations General Gait Pattern Decreased Stride Length, Decreased Feet Clearance Factors Limiting Gait Function Factors Limiting Gait Function Decreased Activity Tolerance, Decreased Strength,Limited Range of Motion,Pain,Poor Balance Comments Gait Comments Knock knee pattern noted with increased R knee valgus. Pt has early bilateral heels off and inadequate WB through lateral heel strike during initial contact and loading response PT-OP-J Posture/Palpation/Skin Start: 11/07/18 08:04 Freq: Status: Active Protocol: Document 11/06/18 16:45 HH (Rec: 11/07/18 08:49 HH [email or web address]) Posture Evaluation Position Standing Evaluation View Anterior Knee Posture (R) Genu Valgus Ankle/Foot Posture (L) Pronated,(R) Pronated Foot Arch (L) Low Arch,(R) No Arch PT-OP-K Range of Motion Start: 11/07/18 08:04 Freq: Status: Active Protocol: Document 11/06/18 16:45 HH (Rec: 11/07/18 08:49 [email or web address]) Ankle and Foot Goniometric Range of Motion Ankle and Foot Right Active Testing Position Supine Dorsiflexion with Knee Flexed 8 Dorsiflexion with Knee Extended 4 Plantarflexion 48 Left Active Testing Position Supine Dorsiflexion with Knee Flexed 7 Dorsiflexion with Knee Extended 3 Plantarflexion 45 PT-OP-M Strength Start: 11/07/18 08:04 Freq: Status: Active Protocol: Document 11/06/18 16:45 HH (Rec: 11/07/18 08:49 [email or web address]) Hip Strength Hip Manual Muscle Testing Right Flexion (L2) 4+ Good+ Extension (S1) 3+ Fair+ Abduction 3 Fair Adduction 4 Good Left Flexion (L2) 4+ Good+ Extension (S1) 4- Good- Abduction 3+ Fair+ Adduction 4 Good Ankle/Foot Strength Ankle and Foot Manual Muscle Testing Right Dorsiflexion (L4) 4+ Good+ Plantarflexion (S1) 4- Good- Inversion 4- Good- Eversion (S1) 4- Good- Left Dorsiflexion (L4) 4- Good- Plantarflexion (S1) 3+ Fair+ Inversion 4 Good Eversion (S1) 4 Good PT-OP-Q Treatments Start: 11/07/18 08:04 Freq: Status: Active Protocol: Document 12/17/18 17:29 HH (Rec: 12/17/18 18:32 [email or web address]) Cardio Equipment Elliptical Duration (Minutes) 4 Recumbent Stepper (Sci-Fit) Duration (Minutes) 9 Resistance 2.0 Gym Equipment Shuttle Recovery heel raise Details double leg with short foot Resistance 75lbs Shuttle Recovery Platform Stable Reps/Time 20 x3 squats Details double leg with short foot Resistance 75 lbs Shuttle Recovery Platform Stable Reps/Time 20 x 3 Therapeutic Exercises Standing Exercises calf stretch Side bilateral Equipment Used wedge Comments 10 x2 Manual Therapy Treatment Soft Tissue Mobilization L Lateral quad Mobilization Type Instrument Assisted Intensity/Depth Moderate Body Position Supine Comments using rolling pin B calves Mobilization Type Instrument Assisted Intensity/Depth Moderate Body Position Prone Comments Using roller Self-Care/Home Management Treatment Education Patient Education Body Mechanics,Home Exercise Program,Pain Management, Posture Other Education Education on biking/ stepper at gym 30mins /day, plus leg press and heel raise. Participate weight loss clinic . Weight loss tracking every week. PT-OP-T Assessment and Plan Start: 11/07/18 08:04 Freq: Status: Active Protocol: Document 12/17/18 17:29 HH (Rec: 12/17/18 18:32 HH [email or web address]) Physical Therapy Assessment Goals single leg balance Impairment Pt SLS: L= 7s, R= 2 s Short Term Goal (STG) pt will improve her SLS to 5 more seconds to improve her gait mechanics and stride length STG Duration 4 weeks Internal Sales Goal (LTG) pt will improve her SLS to 10 more seconds to improve her gait mechanics and stride length LTG Duration 8 weeks activity tolerance Impairment Pt is unable to climb stairs with step over/ prolonged walking Short Term Goal (STG) pt will be able to use step to pattern without UE support/ tolerate 10 mins of walking without heel lift STG Duration 4 weeks Internal Sales Goal (LTG) pt will be able to use step over pattern without UE support/ tolerate 20 mins of walking without heel lift LTG Duration 8 weeks heel pain Impairment Pt has constant L heel pain 8/ 10 Short Term Goal (STG) Pt will have no more than 6/10 L heel pain during amb and at work STG Duration 4 weeks Internal Sales Goal (LTG) Pt will have no more than 4/10 L heel pain during amb and at work LTG Duration 8 weeks Assessment Summary Assessment Pt shows reduced pain in general after acquiring new shoes. Pt's weight today= 312lbs. Focused on education to use weight assisted cardio machines in the gym to reduce her knee and ankle pain. Physical Therapy Plan Next Visit Focus/Plan Next Note Type Treatment Note Next Visit Plan cont monitor pt's weight weight loss program review hep with PF stretch, SLS, hip strengthening ex weight loss program leg press cardio first with bike, stepper manual on L achilles , R plantar fascia B hip strengthening as sam single leg balance as sam
--- NOTE | 2018-12-26 14:47 | PT-IP ANOTE ---
Pt no show for this appt. Called pt via phone and pt thought her appt is on Sunday. Reminded her next appt for next pm
--- NOTE | 2019-01-02 15:26 | PT.OTN ---
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 Pt stated she started working at the [employer] 6 days a week (9-10 hrs shift) due to short of staff. She had to stay on her feet and constantly walking around at work which increased her stress on both feet. She then started to have L heel pain and R foot pain after a few weeks. Her pain is getting worse and started to have difficulty to take long walks. She went to see Dr. Farias 2 weeks ago and was prescirbed with bilateral heel lift wedges. It does help her pain a lot but her pain comes back immediately whenever she walks barefoot at home. SShe is currently unable to sleep in supine due to pressure to her heels. She also has difficulty climbing stairs who has to lead with her R leg and used step to pattern. She stated she does take aleve for pain management. Pt also weighs 316 lbs and hopes to lose weight. Prior Treatments and Tests Pt has heel lift wedges Treatment Goals Patient/Caregiver Goals 1. To be able to amb without heel pain 2. To be able to climb stairs with step over pattern 3. To lose weight Current Functional Impairments (Reported) Functional Limitations- Mobility/Gait unable to amb without heel lifts Functional Limitations- Work/School unable to work for a full8-10 hrs shift due to pain Functional Limitations- Recreation/ unable to go for a long walk Hobbies due to pain ([place] trail) Personal Factors Other Personal Factors That May Effect SOB Therapy/Recovery Asthma PT-OP-C Subjective Start: 11/07/18 08:04 Freq: Status: Active Protocol: Document 01/02/19 14:32 HH (Rec: 01/02/19 14:48 HH [email or web address]) OP-PT Subjective Patient Comments Patient Comments My feet was doing really well the last couple of weeks except the last two days, but my knee has been hurting really bad thats what i didnt exercise much. Sometimes it feels like my knee is locked up and might give out. PT-OP-D Balance Start: 11/07/18 08:04 Freq: Status: Active Protocol: Document 11/06/18 16:45 HH (Rec: 11/07/18 08:49 HH [email or web address]) Balance Tests Single Limb Standing Single Limb- Right 2s Single Limb- Left 7s PT-OP-F Manual Assessment Start: 11/07/18 08:04 Freq: Status: Active Protocol: Document 11/06/18 16:45 HH (Rec: 11/07/18 08:49 HH [email or web address]) Manual Assessments Soft Tissue Assessment Soft Tissue Mobility Assessment Significant tenderness to touch and pressure at L achilles tendon Tenderness to pressure at R posterior tibialis tendon and proximal plantar fascia PT-OP-G Mobility & Gait Start: 11/07/18 08:04 Freq: Status: Active Protocol: Document 11/06/18 16:45 HH (Rec: 11/07/18 08:49 HH [email or web address]) OP Gait Assessment Gait Deviations General Gait Pattern Decreased Stride Length, Decreased Feet Clearance Factors Limiting Gait Function Factors Limiting Gait Function Decreased Activity Tolerance, Decreased Strength,Limited Range of Motion,Pain,Poor Balance Comments Gait Comments Knock knee pattern noted with increased R knee valgus. Pt has early bilateral heels off and inadequate WB through lateral heel strike during initial contact and loading response PT-OP-J Posture/Palpation/Skin Start: 11/07/18 08:04 Freq: Status: Active Protocol: Document 11/06/18 16:45 HH (Rec: 11/07/18 08:49 HH [email or web address]) Posture Evaluation Position Standing Evaluation View Anterior Knee Posture (R) Genu Valgus Ankle/Foot Posture (L) Pronated,(R) Pronated Foot Arch (L) Low Arch,(R) No Arch PT-OP-K Range of Motion Start: 11/07/18 08:04 Freq: Status: Active Protocol: Document 11/06/18 16:45 HH (Rec: 11/07/18 08:49 [email or web address]) Ankle and Foot Goniometric Range of Motion Ankle and Foot Right Active Testing Position Supine Dorsiflexion with Knee Flexed 8 Dorsiflexion with Knee Extended 4 Plantarflexion 48 Left Active Testing Position Supine Dorsiflexion with Knee Flexed 7 Dorsiflexion with Knee Extended 3 Plantarflexion 45 PT-OP-M Strength Start: 11/07/18 08:04 Freq: Status: Active Protocol: Document 11/06/18 16:45 HH (Rec: 11/07/18 08:49 [email or web address]) Hip Strength Hip Manual Muscle Testing Right Flexion (L2) 4+ Good+ Extension (S1) 3+ Fair+ Abduction 3 Fair Adduction 4 Good Left Flexion (L2) 4+ Good+ Extension (S1) 4- Good- Abduction 3+ Fair+ Adduction 4 Good Ankle/Foot Strength Ankle and Foot Manual Muscle Testing Right Dorsiflexion (L4) 4+ Good+ Plantarflexion (S1) 4- Good- Inversion 4- Good- Eversion (S1) 4- Good- Left Dorsiflexion (L4) 4- Good- Plantarflexion (S1) 3+ Fair+ Inversion 4 Good Eversion (S1) 4 Good PT-OP-Q Treatments Start: 11/07/18 08:04 Freq: Status: Active Protocol: Document 01/02/19 14:32 (Rec: 01/02/19 14:48 [id number]) Cardio Equipment Recumbent Stepper (Sci-Fit) Duration (Minutes) 5 Resistance 3.0 Therapeutic Exercises Standing Exercises heel slides Side left hamstring curl Side left Reps/Minutes x15 Manual Therapy Treatment Soft Tissue Mobilization L Lateral quad Body Location lateral and medial quad Mobilization Type Instrument Assisted Intensity/Depth Moderate Body Position Supine Comments using rolling pin; with knee bent PT-OP-R Modalities Start: 11/07/18 08:04 Freq: Status: Active Protocol: Document 01/02/19 14:32 HH (Rec: 01/02/19 14:49 [id number]) Ultrasound Therapy Treatment B achilles Treatment Duration (minutes) 5 Patient Position Supine Coupling Medium Ultrasound Gel Applicator Size (cm2) 5 Frequency Setting (mHz) 1 Mode Setting Continuous Intensity Setting (w/cm2) 1 L knee Treatment Duration (minutes) 5 Patient Position Supine Coupling Medium Ultrasound Gel Applicator Size (cm2) 5 Frequency Setting (mHz) 1 Mode Setting Continuous Intensity Setting (w/cm2) 1 Comments over ant/inf L knee PT-OP-T Assessment and Plan Start: 11/07/18 08:04 Freq: Status: Active Protocol: Document 01/02/19 14:32 HH (Rec: 01/02/19 14:48 HH [id number]) Physical Therapy Assessment Goals single leg balance Impairment Pt SLS: L= 7s, R= 2 s Short Term Goal (STG) pt will improve her SLS to 5 more seconds to improve her gait mechanics and stride length STG Duration 4 weeks Halfway Goal (LTG) pt will improve her SLS to 10 more seconds to improve her gait mechanics and stride length LTG Duration 8 weeks activity tolerance Impairment Pt is unable to climb stairs with step over/ prolonged walking Short Term Goal (STG) pt will be able to use step to pattern without UE support/ tolerate 10 mins of walking without heel lift STG Duration 4 weeks Halfway Goal (LTG) pt will be able to use step over pattern without UE support/ tolerate 20 mins of walking without heel lift LTG Duration 8 weeks heel pain Impairment Pt has constant L heel pain 8/ 10 Short Term Goal (STG) Pt will have no more than 6/10 L heel pain during amb and at work STG Duration 4 weeks Columnist/Commentator Goal (LTG) Pt will have no more than 4/10 L heel pain during amb and at work LTG Duration 8 weeks Assessment Summary Assessment Pt demonstrates improved gait with heel strike and increased stride length. Limited tolerance for MT and ther ex today d/t L knee pain. Improved after MT and gentle AROM. Weight today 314 lbs. Physical Therapy Plan Next Visit Focus/Plan Next Note Type Treatment Note Next Visit Plan cont monitor pt's weight assess tolerance for last session, knee pain review hep with PF stretch, SLS, hip strengthening ex leg press cardio first with bike, stepper manual on L achilles , R plantar fascia B hip strengthening as sam single leg balance as sam
--- NOTE | 2019-01-21 17:06 | PT-IP ANOTE ---
Called pt today who missed her appt d/t vacation. She reports her new shoes does reduce her foot pain for standing/walking, but pain worsens without shoes. She also c/o ongoing B knee pain, especially after working for long hours. She also thinks she has been gaining weight which is not helpful.
--- NOTE | 2019-01-23 15:40 | PT.OTN ---
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 Pt stated she started working at the [employer] 6 days a week (9-10 hrs shift) due to short of staff. She had to stay on her feet and constantly walking around at work which increased her stress on both feet. She then started to have L heel pain and R foot pain after a few weeks. Her pain is getting worse and started to have difficulty to take long walks. She went to see Dr. Farias 2 weeks ago and was prescirbed with bilateral heel lift wedges. It does help her pain a lot but her pain comes back immediately whenever she walks barefoot at home. SShe is currently unable to sleep in supine due to pressure to her heels. She also has difficulty climbing stairs who has to lead with her R leg and used step to pattern. She stated she does take aleve for pain management. Pt also weighs 316 lbs and hopes to lose weight. Prior Treatments and Tests Pt has heel lift wedges Treatment Goals Patient/Caregiver Goals 1. To be able to amb without heel pain 2. To be able to climb stairs with step over pattern 3. To lose weight Current Functional Impairments (Reported) Functional Limitations- Mobility/Gait unable to amb without heel lifts Functional Limitations- Work/School unable to work for a full8-10 hrs shift due to pain Functional Limitations- Recreation/ unable to go for a long walk Hobbies due to pain ([place]) Personal Factors Other Personal Factors That May Effect SOB Therapy/Recovery Asthma PT-OP-C Subjective Start: 11/07/18 08:04 Freq: Status: Active Protocol: Document 01/23/19 14:32 HH (Rec: 01/23/19 15:36 HH [id number]) OP-PT Subjective Patient Comments Patient Comments My feet are fine until I take my shoes off. My left knee is still really bothering me and I can barely bend it. I haven 't been to the gym because the bike hurts my knee. Patient Reported Progress Improving PT-OP-D Balance Start: 11/07/18 08:04 Freq: Status: Active Protocol: Document 11/06/18 16:45 HH (Rec: 11/07/18 08:49 HH [email or web address]) Balance Tests Single Limb Standing Single Limb- Right 2s Single Limb- Left 7s PT-OP-F Manual Assessment Start: 11/07/18 08:04 Freq: Status: Active Protocol: Document 11/06/18 16:45 HH (Rec: 11/07/18 08:49 HH [email or web address]) Manual Assessments Soft Tissue Assessment Soft Tissue Mobility Assessment Significant tenderness to touch and pressure at L achilles tendon Tenderness to pressure at R posterior tibialis tendon and proximal plantar fascia PT-OP-G Mobility & Gait Start: 11/07/18 08:04 Freq: Status: Active Protocol: Document 11/06/18 16:45 HH (Rec: 11/07/18 08:49 HH [email or web address]) OP Gait Assessment Gait Deviations General Gait Pattern Decreased Stride Length, Decreased Feet Clearance Factors Limiting Gait Function Factors Limiting Gait Function Decreased Activity Tolerance, Decreased Strength,Limited Range of Motion,Pain,Poor Balance Comments Gait Comments Knock knee pattern noted with increased R knee valgus. Pt has early bilateral heels off and inadequate WB through lateral heel strike during initial contact and loading response PT-OP-J Posture/Palpation/Skin Start: 11/07/18 08:04 Freq: Status: Active Protocol: Document 11/06/18 16:45 HH (Rec: 11/07/18 08:49 HH [email or web address]) Posture Evaluation Position Standing Evaluation View Anterior Knee Posture (R) Genu Valgus Ankle/Foot Posture (L) Pronated,(R) Pronated Foot Arch (L) Low Arch,(R) No Arch PT-OP-K Range of Motion Start: 11/07/18 08:04 Freq: Status: Active Protocol: Document 11/06/18 16:45 HH (Rec: 11/07/18 08:49 [email or web address]) Ankle and Foot Goniometric Range of Motion Ankle and Foot Right Active Testing Position Supine Dorsiflexion with Knee Flexed 8 Dorsiflexion with Knee Extended 4 Plantarflexion 48 Left Active Testing Position Supine Dorsiflexion with Knee Flexed 7 Dorsiflexion with Knee Extended 3 Plantarflexion 45 PT-OP-M Strength Start: 11/07/18 08:04 Freq: Status: Active Protocol: Document 11/06/18 16:45 HH (Rec: 11/07/18 08:49 [email or web address]) Hip Strength Hip Manual Muscle Testing Right Flexion (L2) 4+ Good+ Extension (S1) 3+ Fair+ Abduction 3 Fair Adduction 4 Good Left Flexion (L2) 4+ Good+ Extension (S1) 4- Good- Abduction 3+ Fair+ Adduction 4 Good Ankle/Foot Strength Ankle and Foot Manual Muscle Testing Right Dorsiflexion (L4) 4+ Good+ Plantarflexion (S1) 4- Good- Inversion 4- Good- Eversion (S1) 4- Good- Left Dorsiflexion (L4) 4- Good- Plantarflexion (S1) 3+ Fair+ Inversion 4 Good Eversion (S1) 4 Good PT-OP-Q Treatments Start: 11/07/18 08:04 Freq: Status: Active Protocol: Document 01/23/19 14:32 HH (Rec: 01/23/19 15:36 [id number]) Cardio Equipment Recumbent Stepper (Sci-Fit) Duration (Minutes) 8 Resistance 2.5 Therapeutic Exercises Standing Exercises crab walk Side bilateral Equipment Used level 1 band Other Exercises tennis ball release Side left Equipment Used tennis ball Comments Left hamstrings, IT band Manual Therapy Treatment Soft Tissue Mobilization L IT band Body Location distal IT band Mobilization Type Instrument Assisted Intensity/Depth Superficial Body Position Sidelying Comments With rolling pin Hamstrings Body Location L lateral hamstring Mobilization Type Instrument Assisted Intensity/Depth Moderate Body Position Prone Comments With rolling pin B calves Mobilization Type Instrument Assisted Intensity/Depth Moderate Body Position Prone Comments With rolling pin L achilles Mobilization Type Instrument Assisted Intensity/Depth Moderate Body Position Prone Comments With rolling pin PT-OP-R Modalities Start: 11/07/18 08:04 Freq: Status: Active Protocol: Document 01/02/19 14:32 (Rec: 01/02/19 14:49 [id number]) Ultrasound Therapy Treatment B achilles Treatment Duration (minutes) 5 Patient Position Supine Coupling Medium Ultrasound Gel Applicator Size (cm2) 5 Frequency Setting (mHz) 1 Mode Setting Continuous Intensity Setting (w/cm2) 1 L knee Treatment Duration (minutes) 5 Patient Position Supine Coupling Medium Ultrasound Gel Applicator Size (cm2) 5 Frequency Setting (mHz) 1 Mode Setting Continuous Intensity Setting (w/cm2) 1 Comments over ant/inf L knee PT-OP-T Assessment and Plan Start: 11/07/18 08:04 Freq: Status: Active Protocol: Document 01/23/19 14:32 (Rec: 01/23/19 15:36 [id number]) Physical Therapy Assessment Goals single leg balance Impairment Pt SLS: L= 7s, R= 2 s Short Term Goal (STG) pt will improve her SLS to 5 more seconds to improve her gait mechanics and stride length STG Duration 4 weeks Prison Goal (LTG) 01/23 did not assess pt will improve her SLS to 10 more seconds to improve her gait mechanics and stride length LTG Duration 8 weeks activity tolerance Impairment Pt is unable to climb stairs with step over/ prolonged walking Short Term Goal (STG) pt will be able to use step to pattern without UE support/ tolerate 10 mins of walking without heel lift STG Duration 4 weeks Prison Goal (LTG) 01/23 goal met: Pt has been ambulating without heel lifting for the past 1.5 months without much increased pain. She is also using step over pattern for stair climbing. pt will be able to use step over pattern without UE support/ tolerate 20 mins of walking without heel lift LTG Duration 8 weeks heel pain Impairment Pt has constant L heel pain 8/ 10 Short Term Goal (STG) Pt will have no more than 6/10 L heel pain during amb and at work STG Duration 4 weeks Machine Tailer Goal (LTG) 12 goal met Pt has no more than 4/10 L heel pain during amb and at work, but does have increased pain for work shift >10 hours. LTG Duration 8 weeks Assessment Summary Assessment Discussed with pt regarding her weight and long working hours are primary contributing factors to her slow rehab process. Pt cont to demonstrate high sx irritability with ther ex and MT around L knee/lateral thigh . Educated on use of tennis ball for self release of hamstrings/IT band. Educated pt on benefit of going to the pool for physical activity without WBing, disc importance of trying to do 20-30 min of activity everyday for weight loss and strengthening. Pt will work on I HEP for next few weeks and reassess after for sx relief and weight loss. Pt's weight today =312 lbs. Physical Therapy Plan Frequency and Duration Frequency of Treatment 1x /month Duration of Treatment 2 monthd Plan of Care Start Date 01/23/19 Plan of Care End Date 03/24/19 Therapeutic Interventions Therapeutic Interventions Balance Training,Gait Training ,Home Exercise Program,Joint Mobilizations,Manual Therapy, Neuromuscular Re-education, Patient/Caregiver Education, Self-Care/Home Management,Soft Tissue Mobilization,Taping, Therapeutic Activities, Therapeutic Exercises Modalities Cold Pack/Ice Massage,Electric Stimulation,Hot Packs, Infrared Therapy,Ultrasound Next Visit Focus/Plan Next Note Type Treatment Note Next Visit Plan cont monitor pt's weight assess tolerance for last session, knee pain review hep with PF stretch, SLS, hip strengthening ex leg press cardio first with bike, stepper manual on L achilles , R plantar fascia B hip strengthening as sam single leg balance as sam
--- NOTE | 2019-02-11 10:23 | PT.OPDS ---
Current Diagnoses Achilles tendinitis, left leg (01/23/19) Visit Care Team Role Provider Type Leonard Aguilar MD Primary Care Provider Physician Specialty: Family Practice Address: [facility] [place], [address] Email: [email or web address] Nydia Farias DPM Attending Provider Physician Specialty: Podiatry Address: [address] [place] [address], [id number] Email: [email or web address] Visit Number Visit Number 11/06 Discharge Summary PT-OP-B Current Condition Start: 11/07/18 08:04 Freq: Status: Active Protocol: Document 11/06/18 16:45 HH (Rec: 11/07/18 08:49 HH [email or web address]) Current Condition History of Current Condition Onset Date 11/07/18 Current Complaints L insertional achilles pain, R heel and foot pain, difficulty in walking History of Current Condition Pt is a 53yo female who presents to clinic with c/o L insertional achilles pain, R heel and foot pain, difficulty in walking since this Mar. Pt stated she started working at the [employer] 6 days a week (9-10 hrs shift) due to short of staff. She had to stay on her feet and constantly walking around at work which increased her stress on both feet. She then started to have L heel pain and R foot pain after a few weeks. Her pain is getting worse and started to have difficulty to take long walks. She went to see Dr. Farias 2 weeks ago and was prescirbed with bilateral heel lift wedges. It does help her pain a lot but her pain comes back immediately whenever she walks barefoot at home. SShe is currently unable to sleep in supine due to pressure to her heels. She also has difficulty climbing stairs who has to lead with her R leg and used step to pattern. She stated she does take aleve for pain management. Pt also weighs 316 lbs and hopes to lose weight. Prior Treatments and Tests Pt has heel lift wedges Treatment Goals Patient/Caregiver Goals 1. To be able to amb without heel pain 2. To be able to climb stairs with step over pattern 3. To lose weight Current Functional Impairments (Reported) Functional Limitations- Mobility/Gait unable to amb without heel lifts Functional Limitations- Work/School unable to work for a full8-10 hrs shift due to pain Functional Limitations- Recreation/ unable to go for a long walk Hobbies due to pain ([place]) Personal Factors Other Personal Factors That May Effect SOB Therapy/Recovery Asthma PT-OP-C Subjective Start: 11/07/18 08:04 Freq: Status: Active Protocol: Document 01/23/19 14:32 HH (Rec: 01/23/19 15:36 HH [id number]) OP-PT Subjective Patient Comments Patient Comments My feet are fine until I take my shoes off. My left knee is still really bothering me and I can barely bend it. I haven 't been to the gym because the bike hurts my knee. Patient Reported Progress Improving PT-OP-D Balance Start: 11/07/18 08:04 Freq: Status: Active Protocol: Document 11/06/18 16:45 HH (Rec: 11/07/18 08:49 HH [email or web address]) Balance Tests Single Limb Standing Single Limb- Right 2s Single Limb- Left 7s PT-OP-F Manual Assessment Start: 11/07/18 08:04 Freq: Status: Active Protocol: Document 11/06/18 16:45 HH (Rec: 11/07/18 08:49 HH [email or web address]) Manual Assessments Soft Tissue Assessment Soft Tissue Mobility Assessment Significant tenderness to touch and pressure at L achilles tendon Tenderness to pressure at R posterior tibialis tendon and proximal plantar fascia PT-OP-G Mobility & Gait Start: 11/07/18 08:04 Freq: Status: Active Protocol: Document 11/06/18 16:45 HH (Rec: 11/07/18 08:49 HH [email or web address]) OP Gait Assessment Gait Deviations General Gait Pattern Decreased Stride Length, Decreased Feet Clearance Factors Limiting Gait Function Factors Limiting Gait Function Decreased Activity Tolerance, Decreased Strength,Limited Range of Motion,Pain,Poor Balance Comments Gait Comments Knock knee pattern noted with increased R knee valgus. Pt has early bilateral heels off and inadequate WB through lateral heel strike during initial contact and loading response PT-OP-J Posture/Palpation/Skin Start: 11/07/18 08:04 Freq: Status: Active Protocol: Document 11/06/18 16:45 HH (Rec: 11/07/18 08:49 [email or web address]) Posture Evaluation Position Standing Evaluation View Anterior Knee Posture (R) Genu Valgus Ankle/Foot Posture (L) Pronated,(R) Pronated Foot Arch (L) Low Arch,(R) No Arch PT-OP-K Range of Motion Start: 11/07/18 08:04 Freq: Status: Active Protocol: Document 11/06/18 16:45 HH (Rec: 11/07/18 08:49 [email or web address]) Ankle and Foot Goniometric Range of Motion Ankle and Foot Right Active Testing Position Supine Dorsiflexion with Knee Flexed 8 Dorsiflexion with Knee Extended 4 Plantarflexion 48 Left Active Testing Position Supine Dorsiflexion with Knee Flexed 7 Dorsiflexion with Knee Extended 3 Plantarflexion 45 PT-OP-M Strength Start: 11/07/18 08:04 Freq: Status: Active Protocol: Document 11/06/18 16:45 HH (Rec: 11/07/18 08:49 [email or web address]) Hip Strength Hip Manual Muscle Testing Right Flexion (L2) 4+ Good+ Extension (S1) 3+ Fair+ Abduction 3 Fair Adduction 4 Good Left Flexion (L2) 4+ Good+ Extension (S1) 4- Good- Abduction 3+ Fair+ Adduction 4 Good Ankle/Foot Strength Ankle and Foot Manual Muscle Testing Right Dorsiflexion (L4) 4+ Good+ Plantarflexion (S1) 4- Good- Inversion 4- Good- Eversion (S1) 4- Good- Left Dorsiflexion (L4) 4- Good- Plantarflexion (S1) 3+ Fair+ Inversion 4 Good Eversion (S1) 4 Good PT-OP-T Assessment and Plan Start: 11/07/18 08:04 Freq: Status: Active Protocol: Document 02/11/19 10:22 HH (Rec: 02/11/19 10:23 [email or web address]) Physical Therapy Plan Discharge Physical Therapy Discharge Reasons Patient Request Discharge Comments Dis with pt last visit regarding using her high copay to invest in gym and pool membership to promote weight loss effect. Pt agreed to it and be d/c from PT.
== END 2019-02-27 10:30 ==
LOC: PHYS 14:30
PROVIDERS: PCP Family Medicine; Visit Provider Podiatrist
DX: M76.62 Achilles tendinitis, left leg (principal)
CPT/HCPCS: 97035; 97110; 97140; 97162; 97535

== ENCOUNTER → 2019-02-14 16:07 | Outpatient (CLI) | payer SELFPAY ==
--- NOTE | 2019-02-14 16:08 | DI.RAD.S_ITS ---
PROCEDURE: XR CHEST 2V INDICATIONS: cough TECHNIQUE: 2 views of the chest were acquired. COMPARISON: [facility], CR, XR CHEST 2V, 05/17/2018, 16:30. FINDINGS: Surgical changes and devices: None. Lungs and pleura: Lungs are clear. No pleural effusions or pneumothorax. Mediastinum: Mediastinal contours are normal. Heart size is normal. There is a hiatal hernia with an air-fluid level. Bones and chest wall: No suspicious bony abnormalities. Soft tissues appear unremarkable. IMPRESSION: 1. No acute cardiopulmonary process. 2. Hiatal hernia. Dictated by: Christiano Gallo M.D. on 02/14/2019 at 15:34 Approved by: Christiano Gallo M.D. on 02/14/2019 at 15:36
== END ==
PROVIDERS: PCP Family Medicine; Visit Provider Physician Assistant
DX: R05 Cough (principal); K44.9 Diaphragmatic hernia without obstruction or gangrene
CPT/HCPCS: 71046

== ENCOUNTER → 2019-04-02 14:53 | Outpatient (CLI) | payer SELFPAY ==
--- NOTE | 2019-04-02 14:56 | DI.MG.S_ITS ---
UNILATERAL LEFT DIGITAL DIAGNOSTIC MAMMOGRAM 3D/2D SHORT-TERM FOLLOW-UP: 04/02/2019 CLINICAL: Patient returns for a 6 month follow up of the left breast. Comparison is made to exams dated: 09/18/2018 mammogram, 09/02/2018 mammogram, and 03/17/2016 mammogram - [facility]. There are scattered fibroglandular elements in left breast. There is a 0.7 cm oval low density asymmetry in the left breast middle depth superior region seen on the mediolateral oblique view only. This is less prominent and decreased in size. There also is a 0.5 cm round asymmetry in the left breast anterior depth inferior region seen on the mediolateral oblique view only. This is less prominent and decreased in size. No other significant masses or calcifications are seen in the breast. IMPRESSION: INCOMPLETE: NEEDS ADDITIONAL IMAGING EVALUATION The 0.7 cm oval low density asymmetry in the left breast middle depth superior region seen on the mediolateral oblique view only is indeterminate. An ultrasound is recommended for further evaluation and is scheduled to immediately follow this study. The 0.5 cm round asymmetry in the left breast anterior depth inferior region seen on the mediolateral oblique view only is indeterminate. An ultrasound is recommended for further evaluation and is scheduled to immediately follow this study. This exam was interpreted at Station ID: [id number]. NOTE: For mammograms, a report in lay terms will be sent to the patient. Approximately 15% of breast malignancies will not be visualized mammographically. In the management of a palpable breast mass, a negative mammogram must not discourage biopsy of a clinically suspicious lesion. Electronically Signed By: Tico Ferrari M.D. aty/:04/02/2019 16:36:37 ACR BI-RADS Category 0: Incomplete 3340F
--- NOTE | 2019-04-02 14:56 | DI.US.S_ITS ---
ULTRASOUND OF LEFT BREAST: 04/02/2019 CLINICAL: 6 month follow-up of cysts. Comparison is made to exams dated: 04/02/2019 mammogram, 09/18/2018 ultrasound, 09/18/2018 mammogram, 09/02/2018 mammogram, 03/17/2016 mammogram, and 12/04/2014 mammogram - [facility]. Color flow and real-time ultrasound of the left breast were performed. Garg scale images of the real-time examination were reviewed. There is a 0.4 cm x 0.2 cm x 0.3 cm oval cyst in the left breast at 7 o'clock middle depth 5 cm from the nipple. This oval cyst is hypoechoic. This abnormality is not significantly changed and correlates with mammography findings. Color flow imaging demonstrates that there is no vascularity present. There also is a 0.6 cm x 0.2 cm x 1.8 cm oval cyst in the left breast at 9 o'clock middle depth 3 cm from the nipple with the long axis parallel to the skin. This abnormality is decreased in size and correlates with mammography findings. Color flow imaging demonstrates that there is no vascularity present. IMPRESSION: PROBABLY BENIGN The 0.4 cm x 0.2 cm x 0.3 cm oval cyst in the left breast at 7 o'clock middle depth is consistent with complicated cyst and is probably benign. The 0.6 cm x 0.2 cm x 1.8 cm oval cyst in the left breast at 9 o'clock middle depth resembles a complicated cyst and is probably benign. A follow-up bilateral mammogram and a left breast ultrasound in 6 months is recommended to demonstrate continued stability. This exam was interpreted at Station ID: [id number]. Electronically Signed By: Tico Ferrari M.D. aty/:04/02/2019 16:42:23 letter sent: Followup Recommended Ultrasound BI-RADS: 3 Probably benign
== END ==
PROVIDERS: PCP Family Medicine; Referring Provider Family Medicine; Visit Provider Family Medicine
DX: R92.8 Other abnormal and inconclusive findings on diagnostic imaging of breast (principal); N60.02 Solitary cyst of left breast
CPT/HCPCS: 76642; 77065; G0279

== ENCOUNTER → 2020-03-12 15:05 | Outpatient (CLI) | payer OTHER, SELFPAY ==
[2020-03-12] MEDS: COVID-19 VACC #1, MRNA(MOD) 100 MCG/0.5 ML VIAL IM (15:48)
== END ==
PROVIDERS: PCP Family Medicine; Visit Provider Internal Medicine
DX: Z23 Encounter for immunization (principal)
CPT/HCPCS: 0011A; 91301

== ENCOUNTER → 2020-04-09 14:46 | Outpatient (CLI) | payer OTHER, SELFPAY ==
[2020-04-09] MEDS: COVID-19 VACC #2, MRNA(MOD) 100 MCG/0.5 ML VIAL IM (14:55)
== END ==
PROVIDERS: PCP Family Medicine; Visit Provider Internal Medicine
DX: Z23 Encounter for immunization (principal)
CPT/HCPCS: 0012A; 91301

== ENCOUNTER → 2020-04-14 13:04 | Outpatient (CLI) | payer OTHER, SELFPAY ==
[2020-04-14 13:38] LABS: Add Manual Diff / Slide Review NO; Basophils Absolute Auto 0 /uL (0-100); Basophils Percent Auto 0.6 % (0-2); Eosinophils Absolute Auto 300 /uL (0-450); Eosinophils Percent Auto 4.5 % (2-4); Hematocrit 39.1 % (36-46); Hemoglobin 12.9 g/dL (12.0-16.0); Lymphocytes Absolute Auto 1600 /uL (1100-4500); Lymphocytes Percent Auto 22.4 % (25-40); Mean Corpuscular Hemoglobin 27.3 PG (26-34); Mean Corpuscular Volume 82.8 fL (80-100); Monocytes Absolute Auto 500 /uL (0-900); Monocytes Percent Auto 6.3 % (3-14); Neutrophils Absolute Auto 4800 /uL (1500-7000); Neutrophils Percent Auto 66.2 % (50-75); Platelet Count 298 X10^3/uL (150-400); Red Blood Cell Count 4.73 X10^6/uL (4.0-5.2); Red Cell Distribution Width 14.3 % (11.6-14.8); White Blood Cell Count 7.3 X10^3/uL (4.5-11.0)
[2020-04-14 13:50] LABS: Alanine Aminotransferase 50 IU/L (<35); Albumin 4.3 g/dL (3.5-5.0); Albumin Globulin Ratio 1.5 (1.0-2.8); Alkaline Phosphatase 103 U/L (38-126); Aspartate Aminotransferase 41 IU/L (14-36); BUN Creatinine Ratio 19.7 (6-22); Bilirubin Total 0.1 mg/dL (0.2-1.3); Blood Urea Nitrogen 13 mg/dL (7-17); Calcium 9.3 mg/dL (8.4-10.2); Carbon Dioxide 29 mmol/L (22-32); Chloride 103 mmol/L (98-107); Cholesterol 183 mg/dL (140-199); Estimated Glomerular Filt Rate > 60.0 mL/min (>60); Globulin 2.9 g/dL (1.7-4.1); Glucose 97 mg/dL (70-100); HDL Cholesterol 42 mg/dL (40-60); HEMOLYSIS < 15 (0-50); LDL Cholesterol Calculated 104 mg/dL (<100); Potassium 3.9 mmol/L (3.4-5.1); Sodium 138 mmol/L (137-145); Total Protein 7.2 g/dL (6.3-8.2); Triglycerides 184 mg/dL (35-150)
[2020-04-14 14:39] LABS: Thyroid Stimulating Hormone 1.98 uIU/mL (0.47-4.68)
== END ==
PROVIDERS: PCP Family Medicine; Referring Provider Family Medicine; Visit Provider Family Medicine
DX: E66.9 Obesity, unspecified (principal); Z13.0 Encounter for screening for diseases of the blood and blood-forming organs and certain disorders involving the immune mechanism; Z13.1 Encounter for screening for diabetes mellitus; Z13.220 Encounter for screening for lipoid disorders; Z13.29 Encounter for screening for other suspected endocrine disorder; E66.01 Morbid (severe) obesity due to excess calories
CPT/HCPCS: 36415; 80053; 80061; 83036; 84443; 85025

== ENCOUNTER → 2020-04-26 15:20 | Outpatient (CLI) | payer OTHER, SELFPAY ==
--- NOTE | 2020-05-19 11:44 | P.HOLT.S_ITS ---
Campground Manager Report Referral & Results Date Patient Seen: 04/26/20 Requesting provider: Leonard Aguilar Indication: Palpitations Duration of monitoring (days): 8 Diary information: There were no patient events Data: Minimum heart rate identified was 62 beats per minute at 06:45 on 05/02/2020 Maximum heart rate was 143 beats per minute at 12:58 on 05/02/2020 Less than 1% of identified beats or either ventricular or supraventricular ectopic in origin which would classify them as rare There was run run of SVT for that was 5 beats in duration at a rate of 139 beats per minute which suggest more atrial tachycardia than true SVT Impression: Essentially normal 7+ day threat monitoring analyst, although no symptoms were reported to correlate with any potential dysrhythmia, no serious dysrhythmias identified
== END ==
PROVIDERS: PCP Family Medicine; Referring Provider Family Medicine; Visit Provider Family Medicine
DX: R00.2 Palpitations (principal)
CPT/HCPCS: 93242; 93244

== ENCOUNTER → 2020-05-21 14:09 | Outpatient (CLI) | payer OTHER, SELFPAY ==
--- NOTE | 2020-05-21 14:10 | DI.MG.S_ITS ---
BILATERAL DIGITAL DIAGNOSTIC MAMMOGRAM 3D/2D SHORT-TERM FOLLOW-UP: 05/21/2020 CLINICAL: Short term follow up of the left breast, due for bilateral imaging. Comparison is made to exams dated: 04/02/2019 mammogram, 09/18/2018 mammogram, and 09/02/2018 mammogram - [facility]. There are scattered fibroglandular elements in both breasts. There is a 0.7 cm oval low density asymmetry in the left breast middle depth superior region seen on the mediolateral oblique view only. This is not significantly changed. There also is a 0.5 cm round asymmetry in the left breast anterior depth inferior region seen on the mediolateral oblique view only. This is not significantly changed. No other significant masses, calcifications, or other findings are seen in either breast. IMPRESSION: INCOMPLETE: NEEDS ADDITIONAL IMAGING EVALUATION The 0.7 cm oval low density asymmetry in the left breast middle depth superior region seen on the mediolateral oblique view only is indeterminate. An ultrasound is recommended. An ultrasound is recommended for further evaluation and is scheduled to immediately follow this study. The 0.5 cm round asymmetry in the left breast anterior depth inferior region seen on the mediolateral oblique view only is indeterminate. An ultrasound is recommended. An ultrasound is recommended for further evaluation and is scheduled to immediately follow this study. This exam was interpreted at Station ID: [id number]. NOTE: For mammograms, a report in lay terms will be sent to the patient. Approximately 15% of breast malignancies will not be visualized mammographically. In the management of a palpable breast mass, a negative mammogram must not discourage biopsy of a clinically suspicious lesion. Electronically Signed By: Cristhian wright/mary:05/21/2020 16:12:24 ACR BI-RADS Category 0: Incomplete 3340F
--- NOTE | 2020-05-21 15:35 | DI.US.S_ITS ---
LIMITED ULTRASOUND OF LEFT BREAST: 05/21/2020 CLINICAL: Patient returns today to evaluate focal asymmetries in the left breast. Comparison is made to exams dated: 05/21/2020 mammogram, 04/02/2019 ultrasound, 04/02/2019 mammogram, 09/18/2018 ultrasound, 09/18/2018 mammogram, and 09/02/2018 mammogram - [facility]. Color flow ultrasound of the left breast was performed. Garg scale images of the real-time examination were reviewed. There is a 0.7 cm x 0.8 cm x 0.3 cm oval cyst in the left breast at 7 o'clock middle depth 5 cm from the nipple. This oval cyst is hypoechoic. This abnormality is not significantly changed and correlates with mammography findings. There also is a 0.6 cm x 0.6 cm x 0.2 cm oval cyst in the left breast at 9 o'clock middle depth 3 cm from the nipple. This abnormality is not significantly changed and correlates with mammography findings. IMPRESSION: PROBABLY BENIGN The 0.7 cm x 0.8 cm x 0.3 cm oval cyst in the left breast at 7 o'clock middle depth is consistent with complicated cysts and is probably benign. The 0.6 cm x 0.6 cm x 0.2 cm oval cyst in the left breast at 9 o'clock middle depth resembles a complicated cyst and is probably benign. A follow-up left mammogram and an ultrasound in 6 months is recommended to demonstrate stability. This exam was interpreted at Station ID: [id number]. Electronically Signed By: Cristhian wright/mary:05/21/2020 16:16:51 letter sent: Followup Recommended Ultrasound BI-RADS: 3 Probably benign
== END ==
PROVIDERS: PCP Family Medicine; Referring Provider Family Medicine; Visit Provider Family Medicine
DX: R92.8 Other abnormal and inconclusive findings on diagnostic imaging of breast (principal)
CPT/HCPCS: 76642; 77066; G0279

== ENCOUNTER → 2020-07-14 09:24 | Outpatient (CLI) | payer OTHER, SELFPAY ==
--- NOTE | 2020-07-14 09:26 | DI.RAD.S_ITS ---
PROCEDURE: XR KNEE RT 3V INDICATIONS: fall TECHNIQUE: 3 views of the knee were acquired. COMPARISON: [facility], , KNEE 3V LEFT, 08/31/2007, 15:31. FINDINGS: Bones: No fractures or dislocations. No suspicious bony lesions. [id number] degenerative change most pronounced in the lateral compartment. Soft tissues: Trace joint effusion. No suspicious soft tissue calcifications. IMPRESSION: No fracture or dislocation. Trace joint effusion. Dictated by: Ryder Rosario M.D. on 07/14/2020 at 12:19 Approved by: Ryder Rosario M.D. on 07/14/2020 at 12:20
== END ==
LOC: RAD 09:25
PROVIDERS: PCP Family Medicine; Referring Provider Family Medicine; Visit Provider Family Medicine
DX: M25.569 Pain in unspecified knee (principal); S89.90XA Unspecified injury of unspecified lower leg, initial encounter
CPT/HCPCS: 73562

== ENCOUNTER → 2021-04-12 13:55 | Outpatient (CLI) | payer OTHER, SELFPAY ==
--- NOTE | 2021-04-12 13:57 | DI.RAD.S_ITS ---
PROCEDURE: XR CHEST 2V INDICATIONS: Chest pressure TECHNIQUE: 2 views of the chest were acquired. COMPARISON: [facility], CR, XR CHEST 2V, 05/17/2018, 16:30. FINDINGS: Surgical changes and devices: None. Lungs and pleura: Lungs are clear. No pleural effusions or pneumothorax. Mediastinum: Mediastinal contours are normal. Heart size is normal. Bones and chest wall: No suspicious bony abnormalities. Soft tissues appear unremarkable. IMPRESSION: No acute cardiopulmonary pathology. Dictated by: Wang Dumont M.D. on 04/12/2021 at 14:35 Approved by: Wang Dumont M.D. on 04/12/2021 at 14:38
== END ==
PROVIDERS: PCP Family Medicine; Referring Provider Physician Assistant; Visit Provider Physician Assistant
DX: R07.89 Other chest pain (principal)
CPT/HCPCS: 71046

== ENCOUNTER → 2021-05-20 09:40 | Outpatient (CLI) | payer OTHER, SELFPAY ==
--- NOTE | 2021-05-20 09:41 | DI.RAD.S_ITS ---
PROCEDURE: FL BARIUM SWALLOW INDICATIONS: GERD; hx of surgery to repair HH in 2009 COMPARISON: None. FINDINGS: Function: There is normal esophageal peristalsis. Gastroesophageal reflux was identified during the study which occurred without provocative maneuvers. There is normal transit of a calibrated barium tablet through the esophagus into the stomach. Morphology: Air-contrast images demonstrate normal mucosal morphology. Moderate-sized paraesophageal type hiatal hernia noted. No esophageal strictures, extrinsic mass effects, or diverticula. Limited images of the stomach demonstrate normal appearance. IMPRESSION: 1. Moderate-sized paraesophageal hiatal hernia. 2. Gastroesophageal reflux. Dictated by: Jerilyn Schrader MD, PhD on 05/20/2021 at 10:40 Approved by: Jerilyn Schrader MD, PhD on 05/20/2021 at 10:42
== END ==
LOC: RAD 09:41
PROVIDERS: PCP Family Medicine; Referring Provider Physician Assistant; Visit Provider Physician Assistant
DX: K21.9 Gastro-esophageal reflux disease without esophagitis (principal); K44.9 Diaphragmatic hernia without obstruction or gangrene
CPT/HCPCS: 74221

== ENCOUNTER → 2021-05-30 07:35 | Outpatient (CLI) | payer OTHER, SELFPAY ==
[2021-05-30 09:23] LABS: Add Manual Diff / Slide Review NO; Basophils Absolute Auto 100 /uL (0-100); Eosinophils Absolute Auto 200 /uL (0-450); Eosinophils Percent Auto 2.8 % (2-4); Hematocrit 39.2 % (36-46); Hemoglobin 12.9 g/dL (12.0-16.0); Lymphocytes Absolute Auto 1500 /uL (1100-4500); Lymphocytes Percent Auto 25.2 % (25-40); Mean Corpuscular Hemoglobin 26.6 PG (26-34); Mean Corpuscular Volume 80.5 fL (80-100); Monocytes Absolute Auto 500 /uL (0-900); Monocytes Percent Auto 8.2 % (3-14); Neutrophils Absolute Auto 3700 /uL (1500-7000); Neutrophils Percent Auto 62.8 % (50-75); Platelet Count 303 X10^3/uL (150-400); Red Blood Cell Count 4.87 X10^6/uL (4.0-5.2); Red Cell Distribution Width 15.4 % (11.6-14.8); White Blood Cell Count 5.9 X10^3/uL (4.5-11.0)
[2021-05-30 09:36] LABS: Alanine Aminotransferase 19 IU/L (<35); Albumin 3.9 g/dL (3.5-5.0); Albumin Globulin Ratio 1.3 (1.0-2.8); Alkaline Phosphatase 84 U/L (38-126); Aspartate Aminotransferase 20 IU/L (14-36); BUN Creatinine Ratio 7.8 (6-22); Bilirubin Total 0.3 mg/dL (0.2-1.3); Blood Urea Nitrogen 6 mg/dL (7-17); Calcium 8.6 mg/dL (8.4-10.2); Carbon Dioxide 27 mmol/L (22-32); Chloride 107 mmol/L (98-107); Cholesterol 175 mg/dL (140-199); Estimated Glomerular Filt Rate > 60 mL/min (>60); Globulin 2.9 g/dL (1.7-4.1); Glucose 112 mg/dL (70-100); HDL Cholesterol 41 mg/dL (40-60); HEMOLYSIS < 15 (0-50); LDL Cholesterol Calculated 109 mg/dL (<100); Potassium 3.6 mmol/L (3.4-5.1); Sodium 141 mmol/L (137-145); Total Protein 6.8 g/dL (6.3-8.2); Triglycerides 124 mg/dL (35-150)
[2021-05-30 10:03] LABS: TSH w/ Reflex to FT4 2.79 uIU/mL (0.47-4.68)
== END ==
PROVIDERS: PCP Family Medicine; Referring Provider Physician Assistant; Visit Provider Physician Assistant
DX: E66.01 Morbid (severe) obesity due to excess calories (principal); R74.8 Abnormal levels of other serum enzymes; E78.1 Pure hyperglyceridemia
CPT/HCPCS: 36415; 80053; 80061; 84443; 85025

== ENCOUNTER → 2021-06-27 12:41 | Outpatient (CLI) | payer OTHER, SELFPAY ==
--- NOTE | 2021-06-27 | DI.MG.S_ITS ---
BILATERAL DIGITAL DIAGNOSTIC MAMMOGRAM 3D/2D: 06/27/2021 CLINICAL: Late short term follow up. Comparison is made to exams dated: 05/21/2020 mammogram, 04/02/2019 mammogram, 09/18/2018 mammogram, and 09/02/2018 mammogram - [facility]. There are scattered fibroglandular elements in both breasts. The previously described oval low density asymmetry in the left breast middle depth superior region seen on the mediolateral oblique view only is less prominent and decreased in size. The previously described round asymmetry in the left breast anterior depth inferior region seen on the mediolateral oblique view only is less prominent. No other significant masses, calcifications, or other findings are seen in either breast. IMPRESSION: INCOMPLETE: NEEDS ADDITIONAL IMAGING EVALUATION The oval low density asymmetry in the left breast middle depth superior region seen on the mediolateral oblique view only is indeterminate. An ultrasound is recommended for further evaluation and is scheduled to immediately follow this examination. The round asymmetry in the left breast anterior depth inferior region seen on the mediolateral oblique view only is indeterminate. An ultrasound is recommended for further evaluation and is scheduled to immediately follow this study. This exam was interpreted at Station ID: [id number]. NOTE: For mammograms, a report in lay terms will be sent to the patient. Approximately 15% of breast malignancies will not be visualized mammographically. In the management of a palpable breast mass, a negative mammogram must not discourage biopsy of a clinically suspicious lesion. Electronically Signed By: Tico Ferrari M.D. aty/:06/27/2021 14:23:13 ACR BI-RADS Category 0: Incomplete 3340F
--- NOTE | 2021-06-27 12:42 | DI.US.S_ITS ---
ULTRASOUND OF LEFT BREAST: 06/27/2021 CLINICAL: 6 month follow-up of cysts. Comparison is made to exams dated: 06/27/2021 mammogram, 05/21/2020 ultrasound, 05/21/2020 mammogram, 04/02/2019 ultrasound, 04/02/2019 mammogram, and 09/18/2018 [facility]. Color flow and real-time ultrasound of the left breast were performed. Garg scale images of the real-time examination were reviewed. There is a 0.8 cm x 0.2 cm x 0.3 cm oval cyst in the left breast at 7 o'clock middle depth 5 cm from the nipple. This oval cyst is hypoechoic with a well-defined boundary. This abnormality is decreased in size and less prominent and correlates with mammography findings. There also is a benign 0.4 cm x 0.2 cm x 0.4 cm oval cyst in the left breast at 9 o'clock middle depth 3 cm from the nipple. This oval cyst displays a well-defined boundary. This abnormality is decreased in size and less prominent and correlates with mammography findings. Color flow imaging demonstrates that there is no vascularity present. IMPRESSION: BENIGN There is no sonographic evidence of malignancy. The 0.8 cm x 0.2 cm x 0.3 cm oval cyst in the left breast at 7 o'clock middle depth is consistent with complicated cysts and is benign. The 0.4 cm x 0.2 cm x 0.4 cm oval cyst in the left breast at 9 o'clock middle depth resembles a complicated cyst and is benign. Return to annual mammogram screening schedule is recommended. Findings and recommendations were conveyed to the patient during today's evaluation. This exam was interpreted at Station ID: [id number]. Electronically Signed By: Tico Ferrari M.D. aty/:06/27/2021 14:27:12 letter sent: Normal Exam Ultrasound BI-RADS: 2 Benign
== END ==
LOC: MAMMO 12:41
PROVIDERS: PCP Family Medicine; Referring Provider Family Medicine; Visit Provider Family Medicine
DX: R92.8 Other abnormal and inconclusive findings on diagnostic imaging of breast (principal); N60.02 Solitary cyst of left breast
CPT/HCPCS: 76642; 77066; G0279

== ENCOUNTER → 2022-07-25 11:51 | Outpatient (CLI) | payer OTHER, SELFPAY ==
--- NOTE | 2022-07-25 11:52 | DI.MG.S_ITS ---
BILATERAL DIGITAL SCREENING MAMMOGRAM 3D/2D WITH CAD: 07/25/2022 CLINICAL: Routine screening. Comparison is made to exams dated: 06/27/2021 mammogram, 05/21/2020 mammogram, and 09/02/2018 mammogram - [facility]. Both breasts are almost entirely fatty (category a/<25% glandular tissue). Current study was also evaluated with a Computer Aided Detection (CAD) system. No significant masses, calcifications, or other findings are seen in either breast. There has been no significant interval change. IMPRESSION: NEGATIVE There is no mammographic evidence of malignancy. A 1 year screening mammogram is recommended. Based on the Tyrer Cuzick model (a risk assessment model) the patient's lifetime risk is 2.2% and her 10 year risk is 0.6%. According to the ACR, ACS, and NCCN guidelines, an annual breast MRI exam along with mammogram is recommended if the patient's lifetime risk is 20% or greater. This exam was interpreted at Station ID: [id number]. NOTE: For mammograms, a report in lay terms will be sent to the patient. Approximately 15% of breast malignancies will not be visualized mammographically. In the management of a palpable breast mass, a negative mammogram must not discourage biopsy of a clinically suspicious lesion. Electronically Signed By: Beth kaufman/mary:07/25/2022 16:37:45 letter sent: Normal Exam ACR BI-RADS Category 1: Negative 3341F
== END ==
PROVIDERS: PCP Family Medicine; Referring Provider Family Medicine; Visit Provider Family Medicine
DX: Z12.31 Encounter for screening mammogram for malignant neoplasm of breast (principal)
CPT/HCPCS: 77063; 77067

== ENCOUNTER → 2022-08-01 07:47 | Outpatient (CLI) | payer OTHER, SELFPAY ==
[2022-08-01 09:34] LABS: Add Manual Diff / Slide Review NO; Basophils Absolute Auto 100 /uL (0-100); Eosinophils Absolute Auto 200 /uL (0-450); Eosinophils Percent Auto 3.2 % (2-4); Hematocrit 37.7 % (36-46); Hemoglobin 12.5 g/dL (12.0-16.0); Lymphocytes Absolute Auto 1500 /uL (1100-4500); Lymphocytes Percent Auto 22.5 % (25-40); Mean Corpuscular HGB Conc 33.1 % (30-36); Mean Corpuscular Hemoglobin 25.7 PG (26-34); Mean Corpuscular Volume 77.6 fL (80-100); Monocytes Absolute Auto 500 /uL (0-900); Monocytes Percent Auto 6.8 % (3-14); Neutrophils Absolute Auto 4500 /uL (1500-7000); Neutrophils Percent Auto 66.5 % (50-75); Platelet Count 336 X10^3/uL (150-400); Red Blood Cell Count 4.86 X10^6/uL (4.0-5.2); Red Cell Distribution Width 15.5 % (11.6-14.8); White Blood Cell Count 6.7 X10^3/uL (4.5-11.0)
[2022-08-01 09:39] LABS: Alanine Aminotransferase 27 IU/L (<35); Albumin 3.8 g/dL (3.5-5.0); Albumin Globulin Ratio 1.4 (1.0-2.8); Alkaline Phosphatase 111 U/L (38-126); Aspartate Aminotransferase 24 IU/L (14-36); BUN Creatinine Ratio 13.3 (6-22); Bilirubin Total 0.4 mg/dL (0.2-1.3); Blood Urea Nitrogen 10 mg/dL (7-17); Calcium 9.1 mg/dL (8.4-10.2); Carbon Dioxide 27 mmol/L (22-32); Chloride 103 mmol/L (98-107); Cholesterol 182 mg/dL (140-199); Estimated Glomerular Filt Rate > 60 mL/min (>60); Globulin 2.7 g/dL (1.7-4.1); Glucose 107 mg/dL (70-100); HDL Cholesterol 48 mg/dL (40-60); HEMOLYSIS < 15 (0-50); LDL Cholesterol Calculated 115 mg/dL (<100); Potassium 4.3 mmol/L (3.4-5.1); Sodium 139 mmol/L (137-145); Total Protein 6.5 g/dL (6.3-8.2); Triglycerides 94 mg/dL (35-150)
[2022-08-01 10:09] LABS: TSH w/ Reflex to FT4 3.28 uIU/mL (0.47-4.68)
== END ==
LOC: LAB 07:47
PROVIDERS: PCP Family Medicine; Referring Provider Physician Assistant; Visit Provider Physician Assistant
DX: R53.83 Other fatigue (principal); Z13.220 Encounter for screening for lipoid disorders; Z13.6 Encounter for screening for cardiovascular disorders
CPT/HCPCS: 36415; 80053; 80061; 84443; 85025

== ENCOUNTER → 2023-01-02 09:46 | Outpatient (CLI) | payer OTHER, SELFPAY ==
--- NOTE | 2023-01-02 09:47 | DI.RAD.S_ITS ---
PROCEDURE: XR CHEST 2V INDICATIONS: Shortness of breath w/minimal activity TECHNIQUE: 2 views of the chest were acquired. COMPARISON: [facility], CR, XR CHEST 2V, 04/12/2021, 13:55. FINDINGS: Surgical changes and devices: None. Lungs and pleura: Lungs are clear. No pleural effusions or pneumothorax. Mediastinum: Mediastinal contours are normal. Heart size is normal. The aorta is tortuous. Bones and chest wall: No suspicious bony abnormalities. Soft tissues appear unremarkable. IMPRESSION: No acute cardiopulmonary abnormality is seen. Dictated by: Edilson Diamond M.D. on 01/02/2023 at 12:10 Approved by: Edilson Diamond M.D. on 01/02/2023 at 12:10
== END ==
PROVIDERS: PCP Family Medicine; Referring Provider Physician Assistant; Visit Provider Physician Assistant
DX: R06.09 Other forms of dyspnea (principal)
CPT/HCPCS: 71046

== ENCOUNTER → 2023-02-01 06:51 | Outpatient (CLI) | payer OTHER, SELFPAY ==
--- NOTE | 2023-02-01 06:52 | DI.ECHO.S_ITS ---
[facility]---------+ [facility] +---------+ : : [address] : [address] : : : : [id number] : : : : Phone: [phone] Echocardiogram Report + + :Name: NICO HERNANDEZ Study Date: 02/01/2023 Height: 66 in : :[facility] ReadingLocation: Weight: 330 lb : : Gender: Female BSA: 2.5 m2 : :: 1965 Age: 57 yrs BP: 144/82 mmHg: :Reason For Study: SHORTNESS OF BREATH : :Ordering Physician: JEREMY, : :CHANELL Riddle Performed By: Beth Sanchez : :Referring: CHANELL LUNA : + + Interpretation Summary 1) Normal left ventricular size, wall motion, and systolic function (EF 65- 70%). 2) Mildly enlarged right ventricle with normal function. 3) No significant valvular abnormalities. 4) No prior Echo available for comparison. Procedure: A two-dimensional transthoracic echocardiogram with color flow and Doppler was performed. The study quality was technically adequate. There is no prior echocardiogram noted for this patient. The patient was in sinus rhythm with heart rates between 81-93 bpm during the exam. Left Ventricle: The left ventricle is normal in size. Left ventricular wall thickness is at the upper limits of normal. The ejection fraction is estimated to be 65-70%. Left ventricular systolic function appears normal without focal wall motion abnormalities. Right Ventricle: The right ventricle is mildly dilated. The right ventricular systolic function is normal. Atria: The left atrial size is normal. Right atrial size is normal. There is no Doppler evidence for an interatrial shunt. Mitral Valve: The mitral valve is normal in structure and function. There is trace mitral regurgitation. Aortic Valve: The aortic valve is trileaflet. The aortic valve opens well. There is no aortic valve stenosis. No aortic regurgitation is present. Tricuspid Valve: The tricuspid valve is normal in structure and function. There is trace tricuspid regurgitation. The right ventricular systolic pressure is estimated to be at least 27 mmHg based on an estimated right atrial pressure of 3 mm Hg. Pulmonic Valve: The pulmonic valve leaflets are thin and pliable; valve motion is normal. There is trace pulmonic regurgitation. Great Vessels: The aortic root is normal size. The dimensions of the ascending aorta are normal. The IVC is of normal diameter and collapses greater than 50% with a sniff. This suggests a low right atrial pressure of 3 mm Hg. Pericardium/ Pleura There is no pericardial effusion. There is no pleural effusion. MMode/2D Measurements & Calculations LVIDd: 4.6 cm LVOT diam: 2.3 cm LVIDs: 3.0 cm Ao root diam: 3.0 cm FS: 35.8 % asc Aorta Diam: 3.2 cm IVSd: 1.1 cm Ao Arch Diam (Prox Trans): 2.3 cm LVPWd: 0.80 cm LV almodovar. diameter/BSA (cm/m^2): 1.9 LV sys. diameter/BSA (cm/m^2): 1.2 LA A2 area: 19.3 cm2 RA long axis: 4.3 cm LA A4 area: 17.1 cm2 RA area: 12.4 cm2 LA length (vol): 4.8 cm RA vol: 30.2 ml LA vol: 58.4 ml RA : 12.2 ml/m2 LA vol index: 23.6 ml/m2 IVC diam: 0.79 cm RVD1 (basal): 4.2 cm RVD2 (mid): 3.6 cm TAPSE: 2.5 cm Doppler Measurements & Calculations Ao V2 max: 149.6 cm/sec LVOT Max Manuel: 115.6 cm/sec Ao V2 mean: 115.1 cm/sec LV V1 max P.3 mmHg Ao max P.0 mmHg LV V1 VTI: 24.7 cm Ao mean P.6 mmHg OMKAR(I,D): 3.3 cm2 Ao V2 VTI: 31.1 cm OMKAR(V,D): 3.2 cm2 sev ratio: 0.79 OMKAR indexed to BSA (cm^2/m^2): 1.3 MV E max manuel: 79.6 cm/sec TR max manuel: 245.0 cm/sec MV A max manuel: 73.7 cm/sec TR max P.0 mmHg MV E/A: 1.1 PA V2 max: 100.7 cm/sec Med Peak E' Manuel: 11.2 cm/sec PA V2 mean: 70.1 cm/sec E/E' med: 7.1 PA mean P.2 mmHg Lat Peak E' Manuel: 11.1 cm/sec PA pr(Accel): 27.6 mmHg E/E' lat: 7.2 E/e' average: 7.1 MV dec time: 0.22 sec SV(LVOT): 101.9 ml Reading Physician:10:03 AM
== END ==
LOC: ECHO 06:52
PROVIDERS: PCP Family Medicine; Referring Provider Physician Assistant; Visit Provider Physician Assistant
DX: R06.09 Other forms of dyspnea (principal)
CPT/HCPCS: 93306

== ENCOUNTER 2023-09-02 17:29 | Emergency (ER) | payer BC, SELFPAY ==
[2023-09-02 17:31] VITALS: BP 152/98; PULSE 79; RESP 20; TEMP 36.5; O2SAT 99; BMI 55.5
[2023-09-02 22:32] VITALS: BP 128/78; PULSE 75; RESP 20; O2SAT 99
--- NOTE | 2023-09-02 22:38 | ED_ITS ---
HPI - Extremity Problem General Chief complaint: Extremity Problem,Nontraumatic Stated complaint: swelling in lower extremities/redness lt leg Time Seen by Provider: 09/02/23 22:29 History of Present Illness HPI Narrative: 57-year-old female complains of generalized swelling edema symptoms to face arms and legs over the last few days. She denies any itching or rash, no redness or fevers, no swelling specifically to tongue or lips, no hives urticaria. She felt her hands or swelling, had difficulty removing her wedding ring. She felt that her face felt swollen compared to photo that she compared with taken few days ago. She has not started any new medications, she has not stopped any chronic medications. No recent exposure to systemic steroids. She denies chest pain, shortness of breath. She denies any known heart failure, liver failure, kidney disease. She does not recognize diagnosis of nephrotic syndrome or problems with previous peripheral edema. No exposure to [id number] new substances, no change in diet or intake. She did try an oral dose of Lasix from her father, 20 mg tablet last night, and urinated more frequently, but still feels like she has generalized swelling. She is making urine. She has no yellow color of skin or eyes. She denies trouble breathing, chest pain, neck pain, jaw pain, back pain. She has not had this problem before. Related Data Home Medications Medication Instructions Recorded Confirmed fexofenadine 180 mg tablet 180 mg PO DAILY 07/06/22 01/02/23 Previous Rx's Medication Instructions Recorded lidocaine 5 % topical ointment 1 applic topical BID PRN pain #30 04/25/21 grams albuterol sulfate 90 mcg/actuation 2 inh inhalation Q4-6H PRN 07/06/22 aerosol inhaler shortness of breath #18 grams fluticasone 250 mcg-salmeterol 50 1 inh inhalation BID #180 ea 07/06/22 mcg/dose blistr powdr for inhalation ipratropium 0.5 mg-albuterol 3 mg 3 ml inhalation Q6H PRN for 01/01/23 (2.5 mg base)/3 mL nebulization dyspnea #90 mL soln inhalational spacing device #1 ea 01/02/23 (BreatheRite MDI Spacer) pantoprazole 40 mg tablet,delayed 40 mg PO BID #60 tabs 06/18/23 release bupropion HCl 150 mg 24 hr tablet, 150 mg PO QAM #90 tabs 06/21/23 extended release furosemide 20 mg tablet 20 mg PO DAILY #10 tabs 09/02/23 Allergies Allergy/AdvReac Type Severity Reaction Status Date / Time No Known Drug Allergies Allergy Verified 01/02/23 09:07 Review of Systems Review of Systems Narrative: see HPI Patient History Surgical History (Updated 07/06/22 @ 12:37 by Kalie Guerra PA-C) H/O: hysterectomy H/O: hysterectomy History of repair of hiatal hernia Social History marital status: unmarried,single Smoking Status: Former smoker alcohol intake: never substance use type: does not use Smoking Status: Former smoker alcohol intake frequency: holidays/special occasions only Substance Use Type: does not use Exam Narrative Exam Narrative: GENERAL: Well-developed patient, in mild distress. HEAD: Atraumatic. Normocephalic. EYES: Pupils equal round and reactive. Extraocular motions intact. No scleral icterus. No injection or drainage. ENT: Nose without bleeding, purulent drainage. Throat without erythema, tonsillar hypertrophy or exudate. Airway patent. NECK: Trachea midline. Non tender CARDIOVASCULAR: Regular rate and rhythm without murmurs, gallops, or rubs. RESPIRATORY: Clear to auscultation. Breath sounds equal bilaterally. No wheezes, rales, or rhonchi. GASTROINTESTINAL: Abdomen soft, non-tender, nondistended. EXTREMITIES: Slight 1+ edema to feet up to ankles, could not appreciate any edema to forelegs or thighs or abdomen, nor upper extremities BACK: Nontender without deformity or crepitance. No flank tenderness. NEURO: AOx3. SKIN: No rash or erythema of visible areas Initial Vital Signs Initial Vital Signs: Vital Signs Temperature 97.7 F 09/02/23 17:31 Pulse Rate 79 09/02/23 17:31 Respiratory Rate 20 09/02/23 17:31 Blood Pressure 152/98 H 09/02/23 17:31 Pulse Oximetry 99 09/02/23 17:31 Oxygen Delivery Method Room Air 09/02/23 17:31 Course Orders Ordered: ED Orders 09/02/23 22:48 EKG-12 Lead Stat 09/02/23 22:49 XR chest 2V Stat 09/02/23 23:15 BNP [NT-proBNP (BNP-Adult 18+)] Stat CBC Auto Diff [Complete Blood Count AUTO DIFF] Stat CMP [Comprehensive Metabolic Panel] Stat Prothrombin Time INR Stat Discontinued Medications Furosemide (Furosemide 40 Mg/4 Ml Vial) 40 mg IV NOW ONE Stop: 09/03/23 00:29 Last Admin: 09/03/23 00:41 Dose: 40 mg Documented By: Vital Signs Vital signs: Vital Signs - 8 hr 09/02/23 22:32 09/02/23 22:32 09/03/23 00:13 Temperature 98.4 F Pulse Rate 75 87 Respiratory Rate 20 19 Blood Pressure 128/78 133/78 Pulse Oximetry 99 95 Oxygen Delivery Method Room Air 09/03/23 01:43 09/03/23 01:43 Temperature Pulse Rate 78 Respiratory Rate 18 Blood Pressure 139/76 Pulse Oximetry 97 Oxygen Delivery Method MDM - Extremity (Nontraumatic) Lab Data 09/02/23 23:15 09/02/23 23:15 Labs: Lab Results 09/02/23 Range/Units 23:15 WBC 6.8 (4.5-11.0) X10^3/uL RBC 4.80 (4.0-5.2) X10^6/uL Hgb 10.9 L (12.0-16.0) g/dL Hct 35.1 L (36-46) % MCV 73.0 L (80-100) fL MCH 22.7 L (26-34) PG MCHC 31.1 (30-36) % RDW 17.5 H (11.6-14.8) % Plt Count 319 (150-400) X10^3/uL Neut % (Auto) 56.7 (50-75) % Lymph % (Auto) 27.7 (25-40) % Sterling % (Auto) 10.2 (3-14) % Eos % (Auto) 4.5 H (2-4) % Baso % (Auto) 0.9 (0-2) % Neut # (Auto) 3900 (0474-9273) /uL Lymph # (Auto) 1900 (1968-1467) /uL Sterling # (Auto) 700 (0-900) /uL Eos # (Auto) 300 (0-450) /uL Baso # (Auto) 100 (0-100) /uL PT 11.5 (9.4-12.5) SECONDS INR 1.0 (0.9-1.3) Sodium 139 (137-145) mmol/L Potassium 3.8 (3.4-5.1) mmol/L Chloride 109 H (98-107) mmol/L Carbon Dioxide 26 (22-32) mmol/L BUN 10 (7-17) mg/dL Creatinine 0.72 (0.52-1.04) mg/dL Estimated GFR > 60 (>60) mL/min BUN/Creatinine Ratio 13.9 (6-22) Glucose 101 H (70-100) mg/dL Calcium 8.8 (8.4-10.2) mg/dL Total Bilirubin 0.3 (0.2-1.3) mg/dL AST 27 (14-36) IU/L ALT 29 (<35) IU/L Alkaline Phosphatase 99 (38-126) U/L NT-Pro-B Natriuret Pep 142 H (<125) pg/mL Total Protein 6.9 (6.3-8.2) g/dL Albumin 3.8 (3.5-5.0) g/dL Globulin 3.1 (1.7-4.1) g/dL Albumin/Globulin Ratio 1.2 (1.0-2.8) Urine Dip Bedside Urine Glucose Negative Bedside Urine Bilirubin - Negative Bedside Urine Ketone - Negative Urine Specific Price 1.025 Bedside Urine Occult Blood - Negative Bedside Urine pH 6.0 Bedside Urine Protein - Negative Bedside Urine Urobilinogen - Negative Bedside Urine Nitrite - Negative Bedside Urine Leukocytes - Negative Esterase Imaging Data Chest x-ray: Radiologist's Impression: [address] [address] XRay Report Signed Patient: Silva Maier MR#: [id number] : 1965 Acct:[id number] Age/Sex: 57 / F Date of Service: 09/02/23 Loc: ED Accession Number: [id number] Procedure: XR chest 2V Ordering Provider: Jeffrey Avitia MD PROCEDURE: XR CHEST 2V INDICATIONS: edema TECHNIQUE: 2 views of the chest were acquired. COMPARISON: [facility], , XR CHEST 2V, 01/02/2023, 10:03. FINDINGS: Surgical changes and devices: None. Lungs and pleura: Lungs are clear. No pleural effusions or pneumothorax. Moderate-sized hiatal hernia. Mediastinum: Mediastinal contours are normal. Heart size is normal. Bones and chest wall: No suspicious bony abnormalities. Soft tissues appear unremarkable. IMPRESSION: Stable radiographic evaluation of the chest without acute cardiopulmonary abnormalities or focal consolidation. Dictated by: Tico Ferrari M.D. on 09/02/2023 at 23:48 Approved by: Tico Ferrari M.D. on 09/02/2023 at 23:49 ECG Data Attestation EKG: I personally reviewed and interpreted this ECG as follows: Interpretation: Normal sinus rhythm with a rate of 70, no obvious ST segment elevation or depression changes. T-wave flattening/inversion lead 3, upright T-waves lead 2 and F contiguous inferior leads. IA 186, QRS 94, QTC 427. MDM Narrative Medical decision making narrative: 57-year-old female with generalized edema for the last few days, including her face, hands, feet, refractory to an oral dose of Lasix that she took from a family member yesterday, no known failure of heart liver kidney. No new medications or change in medications. DX consider generalized anasarca, nephrotic syndrome, heart failure, renal failure, liver failure, hypoalbuminemia, medication effect, other. Labs requested including urinalysis to look for protein, serum albumin, CBC, CMP, BNP, chest x-ray, EKG. Studies unremarkable, no obvious evidence for heart failure or kidney failure or liver failure, no proteinuria of significance to suggest nephrotic syndrome. IV Lasix 40 mg given, frequent urination, patient feels improved. She would like to go home. Prescription for lisinopril once daily 20 mg dose for 1 week, recheck symptoms and blood work with regular provider early next week. Return precautions discussed. Discharge Plan Departure Patient Disposition: Home Clinical Impression: Generalized edema Activity Restrictions/Additional Instructions: Generalized edema swelling symptoms, upper extremities and lower extremities and even in face. Unclear cause. No evidence on lab testing for kidney failure, liver failure, heart failure. No gross protein in the urine, doubt nephrotic syndrome. IV Lasix given, good response having to frequently urinate. Consider daily Lasix for the next few days to 1 week. Recheck symptoms with your regular provider in follow up. Return to this/nearest emergency department for any change worsening symptoms or any concerns prior Prescriptions: New furosemide 20 mg tablet 20 mg PO DAILY Qty: 10 0RF No Action albuterol sulfate 90 mcg/actuation HFA aerosol inhaler 2 inh INHALATION Q4-6H PRN (Reason: shortness of breath) Qty: 18 5RF fexofenadine 180 mg tablet 180 mg PO DAILY fluticasone propion-salmeterol 250-50 mcg/dose blister with device 1 inh inhalation BID Qty: 180 3RF lidocaine 5 % ointment 1 applic topical BID PRN (Reason: pain) Qty: 30 0RF ipratropium-albuterol 0.5 mg-3 mg(2.5 mg base)/3 mL solution for nebulization 3 ml inhalation Q6H PRN (Reason: for dyspnea) Qty: 90 0RF pantoprazole 40 mg tablet,delayed release (DR/EC) 40 mg PO BID Qty: 60 3RF bupropion HCl 150 mg tablet extended release 24 hr 150 mg PO QAM Qty: 90 0RF (DME) BreatheRite MDI Spacer Spacer See Rx Instructions .Route Qty: 1 0RF Rx Instructions: As directed Referrals: Leonard Aguilar MD [Primary Care Provider] - Stand Alone Forms: Patient Portal/API
--- NOTE | 2023-09-02 22:48 | PC.NURSE ---
this RN appreciated no redness upon assessment, some mild pitting edema bilaterally on the ankles was noted. the patient c/o 6/10 pain in her legs.
--- NOTE | 2023-09-02 22:49 | DI.RAD.S_ITS ---
PROCEDURE: XR CHEST 2V INDICATIONS: edema TECHNIQUE: 2 views of the chest were acquired. COMPARISON: [facility], CR, XR CHEST 2V, 01/02/2023, 10:03. FINDINGS: Surgical changes and devices: None. Lungs and pleura: Lungs are clear. No pleural effusions or pneumothorax. Moderate-sized hiatal hernia. Mediastinum: Mediastinal contours are normal. Heart size is normal. Bones and chest wall: No suspicious bony abnormalities. Soft tissues appear unremarkable. IMPRESSION: Stable radiographic evaluation of the chest without acute cardiopulmonary abnormalities or focal consolidation. Dictated by: Tico Ferrari M.D. on 09/02/2023 at 23:48 Approved by: Tico Ferrari M.D. on 09/02/2023 at 23:49
[2023-09-02 23:33] LABS: Add Manual Diff / Slide Review NO; Basophils Absolute Auto 100 /uL (0-100); Basophils Percent Auto 0.9 % (0-2); Eosinophils Absolute Auto 300 /uL (0-450); Eosinophils Percent Auto 4.5 % (2-4); Hematocrit 35.1 % (36-46); Hemoglobin 10.9 g/dL (12.0-16.0); Lymphocytes Absolute Auto 1900 /uL (1100-4500); Lymphocytes Percent Auto 27.7 % (25-40); Mean Corpuscular HGB Conc 31.1 % (30-36); Mean Corpuscular Hemoglobin 22.7 PG (26-34); Monocytes Absolute Auto 700 /uL (0-900); Monocytes Percent Auto 10.2 % (3-14); Neutrophils Absolute Auto 3900 /uL (1500-7000); Neutrophils Percent Auto 56.7 % (50-75); Platelet Count 319 X10^3/uL (150-400); Red Cell Distribution Width 17.5 % (11.6-14.8); White Blood Cell Count 6.8 X10^3/uL (4.5-11.0)
[2023-09-02 23:39] LABS: Prothrombin Time 11.5 SECONDS (9.4-12.5)
[2023-09-02 23:44] LABS: Alanine Aminotransferase 29 IU/L (<35); Albumin 3.8 g/dL (3.5-5.0); Albumin Globulin Ratio 1.2 (1.0-2.8); Alkaline Phosphatase 99 U/L (38-126); Aspartate Aminotransferase 27 IU/L (14-36); BUN Creatinine Ratio 13.9 (6-22); Bilirubin Total 0.3 mg/dL (0.2-1.3); Blood Urea Nitrogen 10 mg/dL (7-17); Calcium 8.8 mg/dL (8.4-10.2); Carbon Dioxide 26 mmol/L (22-32); Chloride 109 mmol/L (98-107); Estimated Glomerular Filt Rate > 60 mL/min (>60); Globulin 3.1 g/dL (1.7-4.1); Glucose 101 mg/dL (70-100); HEMOLYSIS < 15 (0-50); Potassium 3.8 mmol/L (3.4-5.1); Sodium 139 mmol/L (137-145); Total Protein 6.9 g/dL (6.3-8.2)
--- NOTE | 2023-09-02 23:44 | EKG_ITS ---
[facility] [place] [id number] [place] [address] Test Date: 2023-09-02 Pat Name: Silva Maier Department: Room: Gender: Female Shank Skinner: ARMIDA : 1965 Requested By: Order Number: [id number] Reading MD: Timothy Carrasquillo Measurements Intervals Martin Rate: 70 P: 36 DE: 186 QRS: 17 QRSD: 94 T: 24 QT: 396 QTc: 427 Interpretive Statements Normal sinus rhythm Electronically Signed On 09-05-2023 9:17:05 PDT by Timothy Carrasquillo
[2023-09-02 23:52] LABS: NT-proBNP (BNP-Adult 18+) 142 pg/mL (<125)
[2023-09-03 00:13] VITALS: BP 133/78; PULSE 87; RESP 19; TEMP 36.9; O2SAT 95
[2023-09-03] MEDS: FUROSEMIDE 40 MG/4 ML VIAL IV (00:41)
[2023-09-03 01:43] VITALS: BP 139/76; PULSE 78; RESP 18; O2SAT 97
== END 2023-09-03 01:50 | disposition home or self-care (01) ==
PROVIDERS: Emergency Provider Emergency Medicine; PCP Family Medicine
DX: R60.1 Generalized edema (principal)
CPT/HCPCS: 36415; 71046; 80053; 81003; 83880; 85025; 85610; 93005; 96374; 99284; J1940

== ENCOUNTER → 2023-09-26 12:40 | Outpatient (CLI) | payer BC, SELFPAY ==
[2023-09-26 13:52] LABS: Add Manual Diff / Slide Review NO; Basophils Absolute Auto 100 /uL (0-100); Basophils Percent Auto 0.9 % (0-2); Eosinophils Absolute Auto 300 /uL (0-450); Eosinophils Percent Auto 4.3 % (2-4); Hematocrit 36.5 % (36-46); Hemoglobin 11.6 g/dL (12.0-16.0); Lymphocytes Absolute Auto 1900 /uL (1100-4500); Lymphocytes Percent Auto 27.9 % (25-40); Mean Corpuscular HGB Conc 31.8 % (30-36); Mean Corpuscular Hemoglobin 22.8 PG (26-34); Mean Corpuscular Volume 71.7 fL (80-100); Monocytes Absolute Auto 600 /uL (0-900); Monocytes Percent Auto 8.6 % (3-14); Neutrophils Absolute Auto 3900 /uL (1500-7000); Neutrophils Percent Auto 58.3 % (50-75); Platelet Count 354 X10^3/uL (150-400); Red Blood Cell Count 5.08 X10^6/uL (4.0-5.2); Red Cell Distribution Width 17.1 % (11.6-14.8); White Blood Cell Count 6.7 X10^3/uL (4.5-11.0)
[2023-09-26 14:07] LABS: HEMOLYSIS < 15 (0-50)
[2023-09-26 14:08] LABS: Iron 41 ug/dL (37-170)
[2023-09-26 14:20] LABS: Transferrin 363 mg/dL (206-381)
[2023-09-26 14:40] LABS: TSH w/ Reflex to FT4 2.14 uIU/mL (0.47-4.68)
[2023-09-26 14:42] LABS: Ferritin 5 ng/mL (11-264)
[2023-09-26 14:59] LABS: Vitamin B12 240 pg/mL (239-931)
== END ==
PROVIDERS: PCP Family Medicine; Referring Provider Physician Assistant; Visit Provider Physician Assistant
DX: D64.9 Anemia, unspecified (principal); R60.0 Localized edema; R73.09 Other abnormal glucose
CPT/HCPCS: 36415; 82607; 82728; 83036; 83540; 83550; 84443; 85025

== ENCOUNTER → 2023-11-05 15:05 | Outpatient (CLI) | payer BC, SELFPAY | PROVIDERS: PCP Family Medicine; Visit Provider Nurse Practitioner Family | DX: R05.1 Acute cough (principal) | CPT/HCPCS: 0241U ==

== ENCOUNTER → 2023-12-27 09:59 | Outpatient (CLI) | payer BC, SELFPAY ==
--- NOTE | 2023-12-27 10:00 | DI.RAD.S_ITS ---
PROCEDURE: XR KNEE LT 3V INDICATIONS: left knee pain TECHNIQUE: 3 views of the knee were acquired. COMPARISON: [facility], CR, XR KNEE RT 3V, 07/14/2020, 9:27. FINDINGS: Bones: No fractures or dislocations. Moderate tricompartmental osteoarthritis is seen most notably in medial femoral tibial compartment. No significant patellar subluxation. No suspicious bony lesions. Soft tissues: Small to moderate suprapatella effusion. No suspicious soft tissue calcifications. 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 No acute fracture or dislocation. Small to moderate suprapatellar joint effusion. Dictated by: Wang Dumont M.D. on 12/27/2023 at 15:51 Approved by: Wang Dumont M.D. on 12/27/2023 at 15:52
== END ==
PROVIDERS: PCP Family Medicine; Referring Provider Family Medicine; Visit Provider Family Medicine
DX: M17.12 Unilateral primary osteoarthritis, left knee (principal); M25.462 Effusion, left knee; M25.562 Pain in left knee
CPT/HCPCS: 73562

== ENCOUNTER → 2024-01-17 16:36 | Outpatient (CLI) | payer BC, SELFPAY ==
--- NOTE | 2024-01-17 16:37 | DI.RAD.S_ITS ---
PROCEDURE: XR CHEST 2V INDICATIONS: exp wheezing; cough 6D, COPD/Asthma vs PNA TECHNIQUE: 2 views of the chest were acquired. COMPARISON: [facility], CR, XR CHEST 2V, 09/02/2023, 22:51. FINDINGS: Surgical changes and devices: None. Lungs and pleura: Lungs are clear. No pleural effusions or pneumothorax. Mediastinum: Mediastinal contours are normal. Heart size is normal. Hernia. Bones and chest wall: No suspicious bony abnormalities. Soft tissues appear unremarkable. IMPRESSION: No acute pulmonary process. Dictated by: Leigh Alvarado M.D. on 01/17/2024 at 17:06 Approved by: Leigh Alvarado M.D. on 01/17/2024 at 17:06
== END ==
PROVIDERS: PCP Family Medicine; Referring Provider Student in an Organized Health Care Education/Training Program; Visit Provider Student in an Organized Health Care Education/Training Program
DX: J06.9 Acute upper respiratory infection, unspecified (principal); R06.2 Wheezing
CPT/HCPCS: 71046

== ENCOUNTER → 2024-03-25 10:53 | Outpatient (CLI) | payer BC, SELFPAY ==
[2024-03-25 11:51] LABS: Influenza A - CEPHEID Flu A POSITIVE (NEGATIVE); Influenza B - CEPHEID Flu B NEGATIVE (NEGATIVE); Respiratory Syncytial Virus Negative (Negative)
[2024-03-25 11:55] LABS: COVID-19 CEPHEID 4-PLEX PCR Negative (Negative)
== END ==
PROVIDERS: PCP Family Medicine; Visit Provider Physician Assistant
DX: R68.89 Other general symptoms and signs (principal)
CPT/HCPCS: 0241U

== ENCOUNTER → 2024-08-16 09:24 | Outpatient (CLI) | payer BC, SELFPAY ==
[2024-08-16 09:58] LABS: Add Manual Diff / Slide Review NO; Hematocrit 42.4 % (36-46); Hemoglobin 14.0 g/dL (12.0-16.0); Lymphocytes Absolute Auto 1600 /uL (1100-4500); Mean Corpuscular HGB Conc 32.9 % (30-36); Mean Corpuscular Hemoglobin 27.7 PG (26-34); Mean Corpuscular Volume 84.2 fL (80-100); Platelet Count 269 X10^3/uL (150-400)
[2024-08-16 10:06] LABS: Hemoglobin A1C% w Est Avg Glu 5.7 % (4.0-6.0)
[2024-08-16 10:21] LABS: Alanine Aminotransferase 22 IU/L (<35); Albumin 3.9 g/dL (3.5-5.0); Albumin Globulin Ratio 1.5 (1.0-2.8); Alkaline Phosphatase 94 U/L (38-126); Blood Urea Nitrogen 8 mg/dL (7-17); Calcium 9.4 mg/dL (8.4-10.2); Carbon Dioxide 29 mmol/L (22-32); Chloride 105 mmol/L (98-107); Estimated Glomerular Filt Rate > 60 mL/min (>60); Globulin 2.6 g/dL (1.7-4.1); Glucose 107 mg/dL (70-99); HEMOLYSIS < 15 (0-50); Potassium 4.2 mmol/L (3.4-5.1); Sodium 139 mmol/L (137-145); Total Protein 6.5 g/dL (6.3-8.2)
[2024-08-16 10:56] LABS: Ferritin 96 ng/mL (11-264)
[2024-08-16 11:10] LABS: Vitamin B12 707 pg/mL (239-931)
== END ==
PROVIDERS: PCP Family Medicine; Referring Provider Family Medicine; Visit Provider Family Medicine
DX: D50.9 Iron deficiency anemia, unspecified (principal); K44.9 Diaphragmatic hernia without obstruction or gangrene; E11.9 Type 2 diabetes mellitus without complications
CPT/HCPCS: 36415; 80053; 82607; 82728; 83036; 85025

== ENCOUNTER → 2024-12-03 13:43 | Outpatient (CLI) | payer BC, SELFPAY ==
--- NOTE | 2024-12-03 13:45 | DI.RAD.S_ITS ---
1PROCEDURE: XR CHEST 2V INDICATIONS: cough TECHNIQUE: 2 views of the chest were acquired. COMPARISON: [facility], , XR CHEST 2V, 01/17/2024, 16:53. [facility], CR, XR CHEST 2V, 09/02/2023, 22:51. FINDINGS: Surgical changes and devices: None. Lungs and pleura: Peribronchial cuffing. Increased prominence of the interstitial markings.. No pleural effusions or pneumothorax. Mediastinum: Mediastinal contours are normal. Heart size is normal. Bones and chest wall: No suspicious bony abnormalities. Soft tissues appear unremarkable. IMPRESSION: Slight interstitial edema. No pleural effusion. Dictated by: Benson Zhong M.D. on 12/03/2024 at 14:09 Approved by: Benson Zhong M.D. on 12/03/2024 at 14:10
== END ==
LOC: RAD 13:44
PROVIDERS: PCP Family Medicine; Referring Provider Family Medicine; Visit Provider Physician Assistant Medical
DX: R05.9 Cough, unspecified (principal); R60.0 Localized edema
CPT/HCPCS: 71046

== ENCOUNTER → 2025-01-21 14:57 | Outpatient (CLI) | payer BC, SELFPAY ==
--- NOTE | 2025-01-21 14:57 | DI.MG.S_ITS ---
MM screening mammo BI: 01/21/2025. BI-RADS: 1 CLINICAL: 59-year old female for bilateral screening mammogram. Tyrer-Cuzick lifetime risk of 2.7%. No personal or first-degree family history of breast cancer. PRIOR EXAMS 07/25/2022, 06/27/2021, 05/21/2020, 04/02/2019, MAMMOGRAPHY TECHNIQUE: 2D and 3D (tomosynthesis) digital mammographic views obtained, with additional images as needed for full coverage. Current study was also evaluated with a Computer Aided Detection (CAD) system. DENSITY A. The breasts are almost entirely fatty. MAMMOGRAPHY FINDINGS Bilateral: No suspicious mass, asymmetry, microcalcification, or other abnormality seen. IMPRESSION: * No evidence of malignancy. RECOMMENDATIONS Bilateral * Annual screening mammography. OVERALL ASSESSMENT CATEGORY BI-RADS-1: Negative. The [employer] recommends annual screening mammography beginning at age 40 for women with average risk of breast cancer. ELECTRONICALLY SIGNED: Tico Ferrari M.D. on 01/22/2025 at 11:17:03 AM PT Interpreting Station ID: [id number]
== END ==
LOC: MAMMO 14:57
PROVIDERS: PCP Family Medicine; Referring Provider Family Medicine; Visit Provider Family Medicine
DX: Z12.31 Encounter for screening mammogram for malignant neoplasm of breast (principal); R92.313 Mammographic fatty tissue density, bilateral breasts
CPT/HCPCS: 77063; 77067

== ENCOUNTER 2025-02-03 16:55 | Emergency (ER) | payer BC, SELFPAY ==
--- OUTSIDE RECORDS SUMMARY | 2025-02-03 16:57 | XMS_ITS | Encounter Summary ---
Author Organization [facility] Address [address] [place] [address] Care Team Providers Care Eyeglass Fitter Name Role Phone Leonard Aguilar Primary Care Provider [phone] Encounter Details Date Type Department Care Team (Late st Contact Info) Description 08/02/2022 Community Orders Non [facility] Provider Kalie Guerra [facility] [address] [place], [place] [id number] Social History Tobacco Use Types Packs/Day Years Used Date Smoking Tobacco: Never Assessed Comments Unknown Sex and Gender Information Value Date Recorded Sex Assigned at Not on file Legal Sex Female 1:07 PM PST Gender Identity Not on file Sexual Orientation Not on file documented as of this encounter Plan of Treatment Not on file documented as of this encounter Visit Diagnoses Not on filedocumented in this encounter Care Teams Eyeglass Fitter Relationship Specialty Start Date End Date Leonard Aguilar [facility] [address] [facility] [address] [place] [id number] PCP - General 01/03/23 07/22/24 documented as of this encounter
[2025-02-03 17:12] VITALS: BP 134/62; PULSE 94; RESP 20; TEMP 36.8; O2SAT 92; BMI 53.2
--- NOTE | 2025-02-03 17:25 | DI.RAD.S_ITS ---
PROCEDURE: XR CHEST 1V INDICATIONS: upper respiratory symptoms/asthma TECHNIQUE: One view of the chest was acquired. COMPARISON: [facility], CR, XR CHEST 2V, 12/03/2024, 13:45. [facility], CR, XR CHEST 2V, 01/17/2024, 16:53. FINDINGS: Surgical changes and devices: None. Lungs and pleura: Lungs are clear. No pleural effusions or pneumothorax. Mediastinum: Mediastinal contours appear normal. Heart size is normal. Bones and chest wall: No suspicious bony lesions. Overlying soft tissues appear unremarkable. IMPRESSION: No acute cardiopulmonary abnormality is seen. Dictated by: Valdemar Chamorro M.D. on 02/03/2025 at 18:29 Approved by: Valdemar Chamorro M.D. on 02/03/2025 at 18:30
[2025-02-03] MEDS: ALBUTEROL/IPRATROPIUM 3 ML AMPUL INH (17:30)
[2025-02-03 17:32] VITALS: PULSE 85; RESP 18; O2SAT 95
--- NOTE | 2025-02-03 18:00 | ED_ITS ---
<Statement entered by Ramesh Talamantes, DO - 02/03/25 22:57> Co-sign statement: I was available for consultation during this patient's emergency department visit. This chart is being signed by myself for administrative purposes only. I do not have direct contact with this patient during this visit. They were seen independently by the APC. HPI - URI/Sore Throat General Chief Complaint: Upper Respiratory Symptoms Stated Complaint: Chills, SOB, Nausea, Vomiting, Cough, Hx of Asthma Time Seen by Provider: 02/03/25 17:31 Source: patient Mode of arrival: Ambulatory History of Present Illness HPI Narrative: 59-year-old female with past medical history asthma presents to the ED with 6 days of upper respiratory symptoms, wheezing. Patient is complaining of wheezing, trouble catching her breath. Subjective fever, chills. Patient complains of nausea, cough. No abdominal pain, dysuria, lightheadedness, dizziness, syncope. Related Data Home Medications ?Medication ?Instructions ?Recorded ?Confirmed ferrous sulfate 325 mg (65 mg 325 mg PO DAILY 12/27/23 03/25/24 iron) tablet (FeroSul) vitamin B complex (Complex B-100 1 tab PO DAILY 12/03/24 tablet,extended release) celecoxib 200 mg capsule mg PO DAILY 03/25/24 5 Previous Rx's ?Medication ?Instructions ?Recorded furosemide 20 mg tablet 20 mg PO DAILY PRN edema #30 tabs 10/18/23 omeprazole 40 mg capsule,delayed 80 mg (2 x 40 mg) PO DAILY #180 02/14/24 release caps albuterol sulfate 90 mcg/actuation 2 inh inhalation Q4 -6H PRN 08/11/24 aerosol inhaler shortness of breath #18 gram s metformin 500 mg tablet 500 mg PO BID #60 tabs 08/11 fluticasone 250 mcg-salmeterol 50 1 ea inhalation BID #180 ea 10/08/24 mcg/dose blistr powdr for inhalation codeine 10 mg-guaifenesin 100 mg/5 10 ml PO Q4-6H PRN cough 10 days 02/03/25 mL oral liquid #120 mL prednisone 20 mg tablet 60 mg (3 x 20 mg) PO DAILY 5 days 02/03/25 #15 tabs Allergies Allergy/AdvReac Type Severity Reaction Status Date / Time No Known Drug Allergies Allergy Verified 12/03/24 13:30 Review of Systems Constitutional Constitutional: Reports chills, Denies fatigue, Denies fever(s), Denies frequent falls, Reports headache(s), Denies lethargy and Denies weakness Eyes Eyes: Denies change in vision, Denies eye discharge, Denies irritation and Denies loss of vision ENT Ears, Nose, Mouth, and Throat: Denies change in voice, Denies dizziness, Reports headache(s), Reports nasal congestion, Denies neck pain, Denies sore throat and Denies throat swelling Cardiovascular Cardiovascular: Denies chest pain, Denies irregular heart rhythm, Denies lightheadedness, Denies palpitations, Reports dyspnea, Denies dyspnea on exertion and Denies orthopnea Respiratory Respiratory: Reports cough, Reports dyspnea, Denies dyspnea on exertion and Reports wheezing Gastrointestinal Gastrointestinal: Denies abdominal pain, Denies change in bowel habits, Reports diarrhea, Reports nausea and Reports vomiting Musculoskeletal Musculoskeletal: Denies neck pain and Denies numbness Integumentary/Breasts Skin/Breast: Denies pruritus, Denies erythema, Denies rash and Denies wounds Neurologic Neurologic: Denies behavioral changes, Denies confusion, Denies dizziness, Denies frequent falls, Reports headache(s), Denies loss of vision, Denies numbness and Denies weakness Psychiatric Psychiatric: Denies anxiety, Denies behavioral changes, Denies confusion, Denies depression, Denies homicidal ideation and Denies suicidal ideation Endocrine Endocrine: Denies fatigue, Denies flushing and Denies palpitations Hematologic/Lymphatic Hematologic/Lymphatic: Denies easy bruising Allergic/Immunologic Allergic/Immunologic: Denies urticaria, Denies throat swelling and Reports wheezing Patient History Medical History Cough Surgical History H/O: hysterectomy H/O: hysterectomy History of repair of hiatal hernia Social History marital status: unmarried,single Smoking Status: Former smoker alcohol intake: never substance use type: does not use Smoking Status: Former smoker alcohol intake frequency: holidays/special occasions only Exam Narrative Exam Narrative: Const General:?cooperative, healthy appearing and comfortable [facility] Head:?normal to inspection Ears:?hearing grossly normal bilaterally Nose:?external nose normal Face and sinus:?normal facial exam and sinuses nontender Mouth:?oral mucosae normal Throat:?posterior oropharynx normal Eyes General:?appearance normal, both eyes and all related structures Neck Neck:?normal visual inspection and no lymphadenopathy noted Resp Effort & Inspection:?normal respiratory effort Auscultation:? Bilateral generalized wheezes Cardio Rate:?regular rate Rhythm:?regular rhythm Neuro General:?patient alert, patient awake and patient oriented x3 Initial Vital Signs Initial Vital Signs: Vital Signs Temperature 98.3 F 02/03/25 17:12 Pulse Rate 94 H 02/03/25 17:12 Respiratory Rate 20 02/03/25 17:12 Blood Pressure 134/62 02/03/25 17:12 Pulse Oximetry 92 02/03/25 17:12 Oxygen Delivery Method Room Air 02/03/25 17:12 Course Orders Ordered: ED Orders 02/03/25 17:13 Covid-19 + FLU A/B + RSV - PCR Stat 02/03/25 17:19 RT Consult Eval and Treat NOW 02/03/25 17:25 Chest [XR chest 1V] Stat Discontinued Medications Albuterol/Ipratropium (Albuterol/Ipratropium 3 Ml Ampul) 3 ml INH NOW ONE Stop: 02/03/25 17:28 Last Admin: 02/03/25 17:30 Dose: 3 ml Documented By: TEVIN Vital Signs Vital signs: Vital Signs - 8 hr 02/03/25 17:12 02/03/25 17:32 Temperature 98.3 F Pulse Rate 94 H 85 Respiratory Rate 20 18 Blood Pressure 134/62 Pulse Oximetry 92 95 Oxygen Delivery Method Room Air Room Air Fraction of Inspired Oxygen 21 MDM - URI/Sore Throat Lab Data Labs: Lab Results 02/03/25 Range/Units 17:13 SARS-CoV-2 (PCR) Negative (Negative) Influenza A (RT-PCR) Flu a negative (NEGATIVE) Influenza B (RT-PCR) Flu b negative (NEGATIVE) RSV (PCR) Positive A (Negative) MDM Narrative Medical decision making narrative: 59-year-old female with past medical history asthma presents to the ED with 6 days of upper respiratory symptoms, wheezing. Concern for bronchitis versus asthma exacerbation versus viral URI versus pneumonia versus other. Chest x-ray was obtained which was without acute cardiopulmonary abnormality. Respiratory panel was positive for RSV. Patient's symptoms improved with a dose of albuterol and ipratropium in the emergency department. Patient does have albuterol and ipratropium at home. Recommend continuing inhaler treatments for the next several days. Cough medication and prednisone prescribed. Recommend follow-up with PCP as soon as possible. ED return precautions discussed with patient. Patient verbalized understanding. Medical records reviewed: Yes Discharge Plan Departure Patient Disposition: Home Clinical Impression: Respiratory syncytial virus (RSV) Qualifiers: RSV infection type: unspecified Qualified Code(s): B33.8 - Other specified viral diseases Instructions: DI for Respiratory Syncytial Virus -- Adults Activity Restrictions/Additional Instructions: You were evaluated in the emergency department today for upper respiratory symptoms and wheezing. You tested positive for RSV, which is causing your symptoms. It appears that you have an asthma exacerbation from this infection. You were given a treatment of albuterol and ipratropium in the emergency department. You may continue doing your albuterol inhaler every 6 hours for the next several days until your wheezing feels completely resolved. You were also being prescribed steroids for the next 5 days and a cough medication. You may take any other [id number] medications for comfort. Please follow-up with your PCP as soon as possible. Return to the emergency department if you have worsening symptoms, chest pain, shortness of breath. Prescriptions: New prednisone 20 mg tablet 60 mg PO DAILY 5 Days Qty: 15 0RF codeine-guaifenesin 10-100 mg/5 mL liquid 10 ml PO Q4-6H PRN (Reason: cough) 10 Days Qty: 120 0RF No Action celecoxib 200 mg capsule PO DAILY fluticasone propion-salmeterol 250-50 mcg/dose blister with device 1 ea inhalation BID Qty: 180 2RF metformin 500 mg tablet 500 mg PO BID Qty: 60 3RF albuterol sulfate 90 mcg/actuation HFA aerosol inhaler 2 inh INHALATION Q4-6H PRN (Reason: shortness of breath) Qty: 18 5RF ferrous sulfate [FeroSul] 325 mg (65 mg iron) tablet 325 mg PO DAILY Complex B-100 Tablet Extended Release 1 tab PO DAILY furosemide 20 mg tablet 20 mg PO DAILY PRN (Reason: edema) Qty: 30 2RF omeprazole 40 mg capsule,delayed release(DR/EC) 80 mg PO DAILY Qty: 180 3RF Referrals: Leonard Aguilar MD [Primary Care Provider, Family Practice] Stand Alone Forms: Patient Portal/API
[2025-02-03 18:03] LABS: Influenza A - CEPHEID Flu A NEGATIVE (NEGATIVE); Influenza B - CEPHEID Flu B NEGATIVE (NEGATIVE)
[2025-02-03 18:15] LABS: COVID-19 CEPHEID 4-PLEX PCR Negative (Negative)
== END 2025-02-03 19:01 | disposition home or self-care (01) ==
PROVIDERS: Family Medicine; Emergency Provider Student in an Organized Health Care Education/Training Program; PCP Family Medicine
DX: B33.8 Other specified viral diseases (principal); B97.4 Respiratory syncytial virus as the cause of diseases classified elsewhere; R06.02 Shortness of breath; R11.2 Nausea with vomiting, unspecified; R05.9 Cough, unspecified; J45.909 Unspecified asthma, uncomplicated
CPT/HCPCS: 71045; 87637; 99283; 99284

== ENCOUNTER → 2025-02-10 14:21 | Outpatient (CLI) | payer BC, SELFPAY ==
--- NOTE | 2025-02-10 14:22 | DI.RAD.S_ITS ---
PROCEDURE: XR CHEST 2V INDICATIONS: cough x 2 weeks TECHNIQUE: 2 views of the chest were acquired. COMPARISON: [facility], CR, XR CHEST 1V, 02/03/2025, 18:14. [facility], CR, XR CHEST 2V, 12/03/2024, 13:45. FINDINGS: Surgical changes and devices: None. Lungs and pleura: Lungs are clear. No pleural effusions or pneumothorax. Mediastinum: Mediastinal contours are normal. Heart size is normal. Bones and chest wall: No suspicious bony abnormalities. Soft tissues appear unremarkable. IMPRESSION: No acute cardiopulmonary abnormality is seen. Dictated by: Valdemar Chamorro M.D. on 02/10/2025 at 15:15 Approved by: Valdemar Chamorro M.D. on 02/10/2025 at 15:16
== END ==
PROVIDERS: PCP Family Medicine; Referring Provider Physician Assistant; Visit Provider Physician Assistant
DX: B33.8 Other specified viral diseases (principal)
CPT/HCPCS: 71046